=== PATIENT | female | born 1955 | race Caucasian/White ===

== ENCOUNTER 2022-07-17 14:09 | Emergency (ER) | payer MEDICARE, SELFPAY ==
--- NOTE | ~2022-07-17 | XR_ITS ---
EXAMINATION: XR HIP, LEFT CLINICAL INFORMATION: History of fall, pain COMPARISON: CT imaging of the hip from 07/17/2022. TECHNIQUE: Two views of the left hip. AP view of pelvis. FINDINGS: Bones appear to be diffusely osteopenic. Alignment is normal at the pubic symphysis, hips and sacroiliac joints. The left femoral head prosthesis is well centered within the acetabular cup. Acetabular cup has normal lateral version and is stabilized by a superior screw. The noncemented femoral stem is well centered in the medullary cavity of the proximal femoral diaphysis. No periprosthetic fracture. Minimal osteoarthrosis of the right hip. The soft tissues are unremarkable. XR/XR hip LT min 2V IMPRESSION: No acute radiographic abnormalities in the pelvis or hips. No fracture or malalignment. No evidence of loosening of components of the left total hip arthroplasty.
--- NOTE | ~2022-07-17 | CT_ITS ---
EXAMINATION: CT HEAD WITHOUT CONTRAST CT CERVICAL SPINE WITHOUT CONTRAST CLINICAL INFORMATION: Fall. COMPARISON: None available. TECHNIQUE: Contiguous axial imaging was performed from the skull base to vertex without intravenous administration of contrast. Contiguous axial imaging was performed from the upper chest through the skull base without intravenous administration of contrast. Coronal and sagittal reformats were obtained at the acquisition workstation. This CT examination was performed using dose optimization techniques as appropriate, variously including the following: *Automated exposure control. *Adjustment of mA and/or kV according to patient size (this includes techniques or standardized protocols for targeted exams where dose is matched to indication/reason for exam; i.e. extremities or head). *Use of iterative reconstruction technique. DLP: 862 mGy-cm FINDINGS: Head: There is no evidence of acute intracranial hemorrhage or edematous territorial infarction. Pierson-white matter differentiation is preserved. Confluent hypoattenuation in the periventricular and deep white matter. Proportional prominence of the ventricles and sulcal spaces without evidence of obstructive hydrocephalus. No abnormal mass effect or midline shift. No extra-axial fluid collections. No acute soft tissue or osseous abnormalities. Mild mucosal thickening of the paranasal sinuses. The mastoid air cells and middle ear cavities are clear. 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 Cervical Spine: The atlantooccipital and atlantoaxial articulations remain well aligned. Moderate degenerative arthropathy of the atlantodental articulation. Mild right convex curvature of the cervical spine. Otherwise, there is anatomic alignment of the vertebral bodies and posterior elements. No evidence of acute fracture or subluxation. The vertebral body heights and disc spaces are maintained. There is no prevertebral soft tissue swelling. The thyroid gland and remaining cervical soft tissues are within normal limits. The lung apices demonstrate no abnormalities. CT/CT cervical spine wo IV con IMPRESSION: 1. No evidence of acute intracranial hemorrhage or edematous territorial infarction. 2. Moderate to extensive underlying microangiopathy and generalized cerebral volume loss. 3. No evidence of acute fracture or traumatic subluxation of the cervical spine.
--- NOTE | ~2022-07-17 | CT_ITS ---
EXAMINATION: CT HIP WITHOUT CONTRAST, LEFT CLINICAL INFORMATION: Fall, rule out fracture. COMPARISON: None available. TECHNIQUE: Axial imaging. Sagittal and coronal reconstructions. This CT examination was performed using dose optimization techniques as appropriate, variously including the following: *Automated exposure control *Adjustment of mA and/or kV according to patient size (this includes techniques or standardized protocols for targeted exams where dose is matched to indication/reason for exam; i.e. extremities or head) *Use of iterative reconstruction technique DLP: 1031 mGy-cm FINDINGS: Patient is status post left total hip arthroplasty. There is usual position and alignment. Arthroplasty components are well-seated. Normal articulation of the arthroplasty components. There is a screw extending into the acetabulum. No hardware fracture. There is prominent metallic artifact limiting evaluation of the surrounding bone and soft tissues. No acute acetabular fractures identified. No suspicious trav-hardware lucency. The pubic rami appear intact. Normal articulation of the symphysis pubis. Metallic artifact limits evaluation of the proximal femur. In particular, there is limited evaluation of the greater trochanter. No obvious displaced fractures identified. No suspicious trav-hardware lucencies identified. Limited evaluation of the hip joint due to artifact. In the visualized muscles, no measurable tear is identified. No groin lymphadenopathy. Urinary bladder appears unremarkable. CT/CT hip LT wo IV con IMPRESSION: Left total hip arthroplasty. Metallic artifact from the arthroplasty components limits evaluation. No definite acute periprosthetic fractures identified in the nonobscured bone.. Recommend correlation with x-ray. If this persistent symptoms, concern for a osseous injury, bone scan or follow-up CT may be helpful.
[2022-07-17 14:21] VITALS: BP 154/74; BP 160/100; PULSE 96; RESP 18; O2SAT 95; O2SAT 99
[2022-07-17 14:26] VITALS: BP 154/74; PULSE 96; PULSE 98; RESP 18; TEMP 36.7; O2SAT 98
--- NOTE | 2022-07-17 14:29 | ED.FALL ---
HPI - Fall General Chief Complaint: Fall Stated Complaint: Fall, left hip & shoulder pain, per ems Time Seen by Provider: 07/17/22 14:19 Source: patient Mode of arrival: EMS Limitations: no limitations History of Present Illness HPI Narrative: Patient comes to the emergency room complaining of a fall. Patient states that she hurt her left hip. Patient hit her head, did not lose consciousness. Denies headache or neck pain. Patient denies being on blood thinners. Patient states that she was walking out of the bathroom at [facility], patient tripped and fell. Patient states she has mild left-sided shoulder pain but it is not too bad, states she can move her arms. Related Data Previous Rx's Medication Instructions Recorded acetaminophen 500 mg tablet 500 mg PO Q6H PRN pain #30 tabs 07/17/22 Allergies Allergy/AdvReac Type Severity Reaction Status Date / Time Unable to Assess Allergy Unverified 07/17/22 14:29 Review of Systems Review of Systems: Constitutional : No Weight loss, No Fever, No Chills, No Night Sweats, No Fatigue, No Malaise ENT/Mouth : No Hearing loss, No Ear Pain, No Nasal Congestion, No Sinus Pain, No Hoarseness, No sore throat, No Rhinorrhea, No Swallowing Difficulty Eyes: No Eye Pain, No Swelling, No Redness, No Foreign Body, No Discharge, No Vision Changes Cardiovascular : No Chest Pain, No SOB, No Dyspnea on Exertion, No Orthopnea, No Edema, No Palpitations Respiratory : No Cough, No Sputum, No Wheezing, No Smoke Exposure, No Dyspnea Gastrointestinal : No Nausea, No Vomiting, No Diarrhea, No Constipation, No abdominal Pain, No Hematochezia, No Melena Genitourinary : no irregular bleeding, No Dysuria, No Urinary Frequency, No Hematuria, No Urinary Incontinence, No Urgency, No Flank Pain, No Urinary Flow Changes, No Hesitancy Musculoskeletal : Complaining of severe left-sided hip pain, mild left shoulder pain, No Myalgias, No Joint Swelling Skin : No Skin Lesions, No rash Neuro : No Weakness, No Numbness, No Paresthesias, No Loss of Consciousness, No Dizziness, No Headache Psych : No Anxiety/Panic, No Depression, No SI/HI/AH/VH, No Social Issues, Heme/Lymph: No Bruising, No Bleeding,No Lymphadenopathy Endocrine : No Polyuria, No Polydipsia, No Temperature Intolerance [facility] Social History Social History Alcohol intake: former Smoked in Last 30 Days: No Use of substances other than those prescribed or required for medical reasons: No Advance Directives: No Advance Directives Information Provided: Yes Physical Exam Vital Signs: Vital Signs: Last Vital Signs Temp 98.1 F 07/17/22 14:26 Pulse 98 07/17/22 16:50 Resp 18 07/17/22 16:50 BP 157/79 H 07/17/22 16:50 Pulse Ox 98 07/17/22 16:50 O2 Del Method Room Air 07/17/22 16:50 BMI result Body Mass Index 20.0 Course Course Course Narrative: Patient's imaging pending. Medications Administered Discontinued Medications Generic Name Dose Route Start Last Admin Trade Name Freq PRN Reason Stop Dose Admin Acetaminophen 975 mg 07/17/22 17:03 07/17/22 17:21 Acetaminophen 325 Mg Tablet PO 07/17/22 17:04 975 mg ONCE ONE Administration Medical Decision Making Medical Decision Making [facility] Narrative: -my Interpretation of CT scan of the head shows no intracranial bleed. -my interpretation of CT scan of the hip, difficult to interpret, starburst affect from hip arthroplasty, we will obtain x-rays -patient received 1 dose of p.o. Tylenol -x-rays of the hip did not show any fracture or dislocation, normal alignment. -patient was able to stand up and ambulate. A little bit sore but able to do so. -patient will be returning to renal care Radiology Impression Discussion of test interpretation with radiology: I have reviewed the radiologist's reading. Radiologist Impression: INDINGS: Head: There is no evidence of acute intracranial hemorrhage or edematous territorial infarction. Pierson-white matter differentiation is preserved. Confluent hypoattenuation in the periventricular and deep white matter. Proportional prominence of the ventricles and sulcal spaces without evidence of obstructive hydrocephalus. No abnormal mass effect or midline shift. No extra-axial fluid collections. No acute soft tissue or osseous abnormalities. Mild mucosal thickening of the paranasal sinuses. The mastoid air cells and middle ear cavities are clear. 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 Cervical Spine: The atlantooccipital and atlantoaxial articulations remain well aligned. Moderate degenerative arthropathy of the atlantodental articulation. Mild right convex curvature of the cervical spine. Otherwise, there is anatomic alignment of the vertebral bodies and posterior elements. No evidence of acute fracture or subluxation. The vertebral body heights and disc spaces are maintained. There is no prevertebral soft tissue swelling. The thyroid gland and remaining cervical soft tissues are within normal limits. The lung apices demonstrate no abnormalities. CT/CT head/brain wo IV con IMPRESSION: 1.? No evidence of acute intracranial hemorrhage or edematous territorial infarction. 2.? Moderate to extensive underlying microangiopathy and generalized cerebral volume loss. 3.? No evidence of acute fracture or traumatic subluxation of the cervical spine. FINDINGS: Bones appear to be diffusely osteopenic. Alignment is normal at the pubic symphysis, hips and sacroiliac joints. The left femoral head prosthesis is well centered within the acetabular cup. Acetabular cup has normal lateral version and is stabilized by a superior screw. The noncemented femoral stem is well centered in the medullary cavity of the proximal femoral diaphysis. No periprosthetic fracture. Minimal osteoarthrosis of the right hip. The soft tissues are unremarkable. XR/XR hip LT min 2V IMPRESSION: No acute radiographic abnormalities in the pelvis or hips. No fracture or malalignment. No evidence of loosening of components of the left total hip arthroplasty. Discharge Plan Discharge Clinical Impression: Contusion of hip Patient Disposition: Home, Self-Care Instructions: Hip Contusion (ED) Additional Instructions: Please follow-up with your primary care physician tomorrow. If you have any worsening or new symptoms, please return to the emergency room or call 911 Prescriptions: New acetaminophen 500 mg tablet 500 mg PO Q6H PRN (Reason: pain) Qty: 30 0RF
--- NOTE | 2022-07-17 14:36 | PC.NURSE ---
Alert with confusion from [facility]. Per ems patient tripped while coming of the bathroom. was at [facility] s/p left hip replacement. c collar in place complaining of 9/10 left hip pain.
--- NOTE | 2022-07-17 14:39 | PC.NURSE ---
states left hip replacement with a few months ago. confused stating she was a visitor today at [facility] visiting her friend whose when she tripped
--- NOTE | 2022-07-17 14:55 | PC.NURSE ---
PERRLA, hand grasps equal, able to extend and hold arms out in front of her. Denies headache. Left leg without internal or exteral rotation, no shortening of left leg noted.
--- NOTE | 2022-07-17 15:46 | PC.NURSE ---
Pt alert/forgetful, needs frequent reminders. Seen taking off c collar. Pt educated and collar placed back in place. Pt removed off bedpan. Awaiting CT scans
[2022-07-17 16:50] VITALS: BP 157/79; PULSE 98; RESP 18; O2SAT 98
[2022-07-17] MEDS: Acetaminophen 325 MG TABLET 975 MG PO (17:21)
--- NOTE | 2022-07-17 19:52 | PC.NURSE ---
Addendum entered by Madelyn Tovar 07/17/22 19:52: Report given to [facility] RN with no further questions at this time Original Note: Re0
== END 2022-07-17 20:27 | disposition home or self-care (01) ==
PROVIDERS: Absent Provider Physician Assistant Medical; Emergency Provider Emergency Medicine; PCP Family Medicine
DX: S70.02XA Contusion of left hip, initial encounter (principal); S70.212A Abrasion, left hip, initial encounter; R51.9 Headache, unspecified; M54.2 Cervicalgia; W01.0XXA Fall on same level from slipping, tripping and stumbling without subsequent striking against object, initial encounter; Y93.9 Activity, unspecified; Y92.9 Unspecified place or not applicable; Y99.9 Unspecified external cause status
CPT/HCPCS: 70450; 72125; 73502; 73700; 99284

== ENCOUNTER 2022-09-05 12:09 | Inpatient (IN) | payer MEDICARE, SELFPAY ==
[2022-09-05] VITALS (12 sets, daily range): BP systolic 104–158; BP diastolic 55–80; PULSE 103–119; RESP 16–26; TEMP 36.5–40.4; O2SAT 90–98; BMI 26.3; BMI 25.7
--- NOTE | 2022-09-05 | ECG_ITS ---
Test Reason : SEPSIS Blood Pressure : / mmHG Vent. Rate : 118 BPM Atrial Rate : 118 BPM P-R Int : 134 ms QRS Dur : 070 ms QT Int : 298 ms P-R-T Axes : 066 013 053 degrees QTc Int : 417 ms Sinus tachycardia Nonspecific T wave abnormality Abnormal ECG No previous ECGs available Referred By: Generic ED Physician Electronically Signed By:Kwasi Peacock
--- NOTE | ~2022-09-05 | XR_ITS ---
EXAMINATION: XR CHEST CLINICAL INFORMATION: Shortness of breath COMPARISON: None available. TECHNIQUE: Frontal view of the chest was obtained. FINDINGS: Heart size within normal limits. Right lung is clear. No gross vascular congestion. Possible air bronchograms in left upper lobe, partially obscured by patient's chin. No acute bony pathology. XR/XR chest 1V IMPRESSION: Possible left upper lobe peribronchiolar increased markings/consolidation. Repeat study recommended when feasible.
--- NOTE | ~2022-09-05 | CT_ITS ---
EXAMINATION: CT HEAD WITHOUT CONTRAST CLINICAL INFORMATION: Altered mental status COMPARISON: CT head 07/17/2022 TECHNIQUE: Contiguous axial imaging was performed from the skull base to vertex without intravenous administration of contrast. Coronal and sagittal reformatted images are performed at the CT scanner. [This CT examination was performed using dose optimization techniques as appropriate, variously including the following: *Automated exposure control *Adjustment of mA and/or kV according to patient size (this includes techniques or standardized protocols for targeted exams where dose is matched to indication/reason for exam; i.e. extremities or head) *Use of iterative reconstruction technique] DLP: 5.12+682.74 mGy-cm. FINDINGS: There is no evidence of acute intracranial hemorrhage or territorial infarction. No abnormal mass-effect or midline shift is seen. Pierson to white matter differentiation is well preserved. No extra-axial fluid collections are identified. There is generalized global volume loss. There is moderate prominence of the ventricles and the sulci . There is moderate hypodensity of the periventricular white matter due to chronic small vessel ischemic disease. There are vascular calcifications of the internal carotid arteries bilaterally. There is no osseous abnormality. The mastoid air cells and visualized portions of the paranasal sinuses are well-aerated. CT/CT head/brain wo IV con IMPRESSION: No acute intracranial pathology.
--- NOTE | ~2022-09-05 | CT_ITS ---
EXAMINATION: CT ABDOMEN AND PELVIS WITH CONTRAST CLINICAL INFORMATION: Abdominal pain COMPARISON: None available. TECHNIQUE: Multidetector volumetric images were obtained from the superior aspect of the liver through the pubic symphysis following administration 85 mL of Omnipaque 350 intravenous contrast. Sagittal and coronal reformatted images were obtained on the technologist's workstation. Oral contrast: No This CT examination was performed using dose optimization techniques as appropriate, variously including the following: *Automated exposure control *Adjustment of mA and/or kV according to patient size (this includes techniques or standardized protocols for targeted exams where dose is matched to indication/reason for exam; i.e. extremities or head) *Use of iterative reconstruction technique DLP: 4.87+518.54 mGy-cm FINDINGS: There is breathing motion which limits study. LUNG BASES: The visualized lung bases are unremarkable. LIVER, GALLBLADDER, AND BILIARY TREE: The liver is normal in size, shape, and attenuation. No focal hepatic lesion or biliary ductal dilatation is present. The gallbladder is unremarkable with no evidence of radiopaque gallstones, gallbladder wall thickening, or obvious pericholecystic inflammatory changes. PANCREAS: Unremarkable. SPLEEN: Unremarkable. ADRENAL GLANDS: Unremarkable. KIDNEYS AND URETERS: There is moderate hydronephrosis of right kidney with distention renal pelvis calyces and extrarenal pelvis. No hydroureter however. No dilatation of the left renal collecting system. There is no renal calculus or mass in either kidney. The enhancement of the cortex of both kidneys is normal. BLADDER: Gill catheter within the bladder. Bladder is obscured by streak artifact from left hip replacement. GASTROINTESTINAL TRACT: The small and large bowel are unremarkable. The appendix is nonvisualized. ABDOMINAL WALL: No significant hernia is appreciated. LYMPH NODES: Normal. VASCULAR: Unremarkable. PELVIC VISCERA: Unremarkable. OSSEOUS STRUCTURES: Status post left hip replacement CT/CT abdomen pelvis w IV con IMPRESSION: 1. Moderate hydronephrosis of right kidney. No renal calculus or mass. 2. Gill catheter within the bladder. 3. No acute abnormality of the abdomen or pelvis. Fleischner guidelines were followed.
[2022-09-05] MEDS: SODIUM CHLORIDE 1836 ML IV (13:40)
--- NOTE | 2022-09-05 13:43 | PC.NURSE ---
Pt initially in ED Bed 13 [place]. Moved to ED Bed 5 due to sepsis protocol and monitoring needs. Pt is febrile, tachycardic, tachypnic, lethargic, and has 2LPM oxygen via nasal cannula at this time. Arrives from [facility] via EMS. Pt doesn't respond other than occasional moaning or mumbles to verbal stimuli. Occasionally opens eyes. Large liquid bowel movement, ?C-Diff upon being moved to ED Bed 5. EKG obtained, labs drawn and sent for analysis. Rectal temperature 104.8 F, Dr. Gray aware. 18g IV access in Right AC started by EMS prior to arrival, 20g IV access in left forearm by Argelia Bansal RN. Normal saline infusing as ordered, awaiting results. Vomiting yellow/green bile occasionally. Gown & linens changed with assistance from ED Techs Noe & Mariah.
[2022-09-05 13:45] LABS: Basophils Percent Auto 0.3 % (0-2); Hematocrit 39.7 % (37.0-47.0); Hemoglobin 12.8 g/dl (12.0-16.0); Imm Gran Abs Auto 0.04 X10*3/uL (0.00-0.03); Imm Gran Pct Auto 0.3 % (0.0-0.4); Lymphocytes Absolute Auto 0.4 X10*3/uL (1.2-4.9); Lymphocytes Percent Auto 2.7 % (20-40); MANUAL DIFF FLAG SCAN; Mean Corpuscular HGB Conc 32.2 g/dl (31.0-35.0); Mean Corpuscular Hemoglobin 31.4 pg (27.0-33.0); Mean Corpuscular Volume 97.3 fL (80.0-98.0); Mean Platelet Volume 8.4 fL (9.4-12.3); Monocytes Percent Auto 0.3 % (2-11); Neutrophils Absolute Auto 12.3 x10*3/uL (2.0-8.3); Neutrophils Percent Auto 96.4 % (45-73); Platelet Count 196 X10*3/uL (160-400); Red Blood Count 4.08 X10*6/uL (4.20-5.50); Red Cell Distribution Width 13.3 % (11.0-16.0); SCAN SMEAR FLAG 1; White Blood Count 12.7 X10*3/uL (4.8-10.8)
--- NOTE | 2022-09-05 13:53 | ED.GENADULT ---
HPI - General Adult General Chief complaint: General Medical Stated complaint: abdominal pain, nausea, vomiting,fever per ems Time Seen by Provider: 09/05/22 13:09 Source: EMS Mode of arrival: EMS History of Present Illness HPI narrative: 67-year-old female with history of MS is brought in by EMS appears to be minimally verbal at this time so history is provided by EMS and the paperwork that was sent from the [facility]. They state that they sent patient over for lethargy, fever and bilious vomiting. Related Data Home Medications Medication Instructions Recorded Confirmed acetaminophen 325 mg tablet 975 mg PO TID 09/05/22 09/05/22 acetaminophen 650 mg rectal 650 mg PA Q4H PRN Fever Or Pain 09/05/22 09/05/22 suppository bisacodyl 10 mg rectal suppository 10 mg PA DAILY PRN Constipation 09/05/22 09/05/22 cyanocobalamin (vitamin B-12) 1,000 mcg PO DAILY 09/05/22 09/05/22 1,000 mcg tablet ferrous sulfate 325 mg (65 mg 650 mg PO Q2D 09/05/22 09/05/22 iron) tablet,delayed release lidocaine 4 % topical patch 1 patch topical DAILY PRN Pain 09/05/22 09/05/22 magnesium hydroxide 400 mg/5 mL 30 ml PO DAILY PRN Constipation 09/05/22 09/05/22 oral suspension (Milk of Magnesia) meclizine 12.5 mg tablet 12.5 mg PO TID PRN Dizziness 09/05/22 09/05/22 naloxone 4 mg/actuation nasal 4 mg intranasal Q3M PRN Opioid 09/05/22 09/05/22 spray (Narcan) Overdose sodium phosphates 19 gram-7 118 ml PA DAILY PRN Constipation 09/05/22 09/05/22 gram/118 mL enema (Fleet Enema) Allergies Allergy/AdvReac Type Severity Reaction Status Date / Time Sulfa (Sulfonamide Allergy Unknown Verified 09/05/22 12:30 Antibiotics) Review of Systems Review of Systems: Yes Unobtainable due to mental condition PMFSH Past Medical History Source: nursing notes reviewed Social History Social History Alcohol intake: former Advance Directives: No Advance Directives Information Provided: Yes Physical Exam ED Vital Signs: Vital Signs - 24 hr 09/05/22 12:25 09/05/22 13:11 09/05/22 14:37 Temperature 99.4 F 104.8 F H 103.1 F H Pulse Rate 110 H 105 H 113 H Respiratory Rate 26 H 22 H 22 H Blood Pressure 158/59 H 133/66 156/69 H Pulse Oximetry 90 L 97 96 Oxygen Delivery Method Room Air Nasal Cannula Nasal Cannula Oxygen Flow Rate 2 2 09/05/22 13:53 09/05/22 14:23 09/05/22 14:53 Temperature 104.2 F H Pulse Rate 113 H 118 H 117 H Respiratory Rate 20 Blood Pressure 150/63 H 141/72 H 150/75 H Pulse Oximetry 96 Oxygen Delivery Method Room Air Oxygen Flow Rate 2 09/05/22 15:23 09/05/22 17:07 Temperature 104.4 F H 103.6 F H Pulse Rate 106 H 114 H Respiratory Rate 20 16 Blood Pressure 146/80 H 137/65 Pulse Oximetry 97 98 Oxygen Delivery Method Nasal Cannula Nasal Cannula Oxygen Flow Rate 2 2 BMI result Body Mass Index 26.3 VITAL SIGNS: Reviewed. GENERAL: Chronically ill, in no acute distress. HEAD: Normocephalic/atraumatic EYES: PERRLA, EOMI EARS: Ext canals without abnormality, TMs non-bulging and non-erythematous NOSE: Nares patent bilateral OROPHARYNX: no oral lesions noted, posterior pharynx clear, dry mucosa NECK: Supple, no adenopathy LUNGS: Normal breath sounds. No adventitious sounds or accessory muscle use. SpO2<97> on supplemental oxygen CARDIOVASCULAR: Regular rate and rhythm without noted murmurs, no JVD or lower extremity edema. ABDOMEN: Soft, non-tender, non-distended with bowel sounds. MUSCULOSKELETAL: No tenderness, deformities, or effusions noted on gross inspection. EXTREMITIES: No cyanosis, clubbing or edema. SKIN: Inspection of the skin reveals no rashes, tactile fever NEUROLOGIC: Lethargic and oriented x 1. Strength and sensation to light touch were grossly intact x 4. Medications Administered Generic Name Dose Route Start Last Admin Trade Name Freq PRN Reason Stop Dose Admin Potassium Chloride 10 meq in 100 mls @ 100 mls/hr 09/05/22 15:45 09/05/22 17:06 Potassium Chloride/H20 IV 09/05/22 17:44 100 mls/hr Q1H FE Administration Sodium Chloride 1,000 mls @ 999 mls/hr 09/05/22 17:00 09/05/22 17:06 Ns IV 09/05/22 18:00 999 mls/hr .Q1H1M FE Administration Discontinued Medications Generic Name Dose Route Start Last Admin Trade Name Bennettq PRN Reason Stop Dose Admin Acetaminophen 650 mg 09/05/22 13:11 09/05/22 14:14 Acetaminophen Supp 650 Mg Supp.Rect PA 09/05/22 13:12 650 mg ONCE ONE Administration Piperacillin Sod/Tazobactam 50 mls @ 100 mls/hr 09/05/22 13:09 09/05/22 14:45 Sod 3.375 gm/ Sodium Chloride IV 09/05/22 13:38 Infused ONCE ONE Infusion Sodium Chloride 1,836 mls @ 1,836 mls/hr 09/05/22 13:11 09/05/22 14:40 Ns 30 ml/kg infuse over 1 hr (1836 ml) 09/05/22 14:10 Infused IV Infusion .Q1H STA Magnesium Sulfate/Dextrose 1 gm in 100 mls @ 300 mls/hr 09/05/22 15:35 09/05/22 16:36 Magnesium Sulfate/D5w IV 09/05/22 15:54 Infused ONCE ONE Infusion Iohexol 100 ml 09/05/22 15:14 09/05/22 15:15 Iohexol 350 Mg/Ml 100 Ml Infus..Btl IV 09/05/22 15:15 85 ml ONCE ONE Administration Ketorolac Tromethamine 15 mg 09/05/22 15:37 09/05/22 16:02 Ketorolac Tromethamine 30 Mg/Ml Vial IVPUSH 09/05/22 15:38 15 mg ONCE ONE Administration Medical Decision Making Medical Decision Making [facility] Narrative: 1310: 67-year-old female with history and clinical presentation, DDX: Sepsis secondary to pneumonia as patient is noted to be hypoxic, or possible intra-abdominal as patient was noted to have copious amounts of diarrhea so will send GI panel/C diff, viral syndrome, gastroenteritis. Sepsis fluids, lactic acid, blood cultures, and antibiotics have been ordered. 1440: Given patient's decrease in mentation will also get CT of the head only if mentation does not improve with temperature reduction. I reviewed all investigations and hematologic indices significant for leukocytosis/ left shift and in combination with chest x-ray findings which suggest pneumonia and fever suspect that the sepsis is related to pneumonia. Temperature did mildly improve but has begun to increase again. Chemistry indices significant for low magnesium which was repleted, low potassium which patient will be getting 2-10 mEq potassium chloride via IV. CT of the head negative for mass, mass effect or intracranial hemorrhage and otherwise my interpretation is in agreement with radiology's impression. In addition, CT scan of the abdomen pelvis not significant for a colitis picture and otherwise my interpretation agrees with radiology's impression. C diff was noted to be negative and continue to wait for GI panel. Urinalysis significant for hematuria/rbc's/wbc's without presence of bacteria. Viral testing is pending 1622: I discussed case with inpatient hospitalist who accepts admission. Differential Diagnosis Differential Diagnoses: The differential diagnosis associated with the presentation includes Please see the discussion above Admission/Observation Consideration of admission/observation: Escalation of care including admission/observation considered Please see the discussion above Consult Healthcare Provider Management of the patient was discussed with: Hospitalist Please see the discussion above Lab Data MDM Lab Attestation statement: I reviewed the patient's lab results. Please see the discussion above 09/05/22 13:38 Labs: Lab Results 09/05/22 09/05/22 09/05/22 Range/Units 13:38 13:38 13:38 WBC 12.7 H (4.8-10.8) X10*3/uL RBC 4.08 L (4.20-5.50) X10*6/uL Hgb 12.8 (12.0-16.0) g/dl Hct 39.7 (37.0-47.0) % MCV 97.3 (80.0-98.0) fL MCH 31.4 (27.0-33.0) pg MCHC 32.2 (31.0-35.0) g/dl RDW 13.3 (11.0-16.0) % Plt Count 196 (160-400) X10*3/uL MPV 8.4 L (9.4-12.3) fL Immature Gran % (Auto) 0.3 (0.0-0.4) % Neut % (Auto) 96.4 H (45-73) % Lymph % (Auto) 2.7 L (20-40) % Caroline % (Auto) 0.3 L (2-11) % Eos % (Auto) 0.0 (0-4) % Baso % (Auto) 0.3 (0-2) % Lymph # (Auto) 0.4 L (1.2-4.9) X10*3/uL [place] # (Auto) 0.0 L (0.1-1.2) X10*3/uL Eos # (Auto) 0.0 (0.0-0.4) X10*3/uL Baso # (Auto) 0.0 (0.0-0.2) X10*3/uL Abs Immat Gran (auto) 0.04 H (0.00-0.03) X10*3/uL Absolute Neuts (auto) 12.3 H (2.0-8.3) x10*3/uL Absolute Nucleated RBC 0.000 (0.0-0.012) X10*3/uL Nucleated RBC % (auto) 0.0 (0.0-0.2) /100WBC Smear Tech's Comments VERIFIED PT 11.3 (10.0-13.1) SEC INR 1.0 (0.9-1.1) APTT 28.3 (26.0-36.4) SEC Sodium (135-145) mmol/L Potassium (3.3-5.1) mmol/L Chloride (96-108) mmol/L Carbon Dioxide (22-29) mmol/L Anion Gap (12-20) BUN (9-16) mg/dL Creatinine (0.5-1.4) mg/dL Estim Creat Clear Calc Estimated GFR Random Glucose (60-115) mg/dL Lactic Acid 2.3 H* (0.5-2.0) mmol/L Lactic Acid F/U @ 2Hr (0.5-2.0) mmol/L Calcium (8.4-10.2) mg/dL Magnesium (1.6-2.6) mg/dL Total Bilirubin (0.0-1.0) mg/dL Direct Bilirubin (0.0-0.5) mg/dL AST (5-31) U/L ALT (0-31) U/L Alkaline Phosphatase (39-117) U/L Total Protein (6.5-8.0) g/dL Albumin (3.5-5.0) g/dL Urine Color Urine Appearance Urine pH (5.0-9.0) Ur Specific [employer] (1.005-1.025) Urine Protein (Neg-Trace) mg/dL Urine Glucose (UA) (Negative) mg/dL Urine Ketones (Negative) mg/dL Urine Blood (Negative) Urine Nitrite (Negative) Ur Leukocyte Esterase (Negative) Urine RBC (0-2) /HPF Urine WBC (0-5) /HPF Ur Squamous Epith Cells (0-2) /HPF Urine Bacteria (None Seen) Hyaline Casts (0-2) /LPF C. difficile Tox B Gene (Negative) 09/05/22 09/05/22 09/05/22 Range/Units 13:38 13:52 14:45 WBC (4.8-10.8) X10*3/uL RBC (4.20-5.50) X10*6/uL Hgb (12.0-16.0) g/dl Hct (37.0-47.0) % MCV (80.0-98.0) fL MCH (27.0-33.0) pg MCHC (31.0-35.0) g/dl RDW (11.0-16.0) % Plt Count (160-400) X10*3/uL MPV (9.4-12.3) fL Immature Gran % (Auto) (0.0-0.4) % Neut % (Auto) (45-73) % Lymph % (Auto) (20-40) % Caroline % (Auto) (2-11) % Eos % (Auto) (0-4) % Baso % (Auto) (0-2) % Lymph # (Auto) (1.2-4.9) X10*3/uL Caroline # (Auto) (0.1-1.2) X10*3/uL Eos # (Auto) (0.0-0.4) X10*3/uL Baso # (Auto) (0.0-0.2) X10*3/uL Abs Immat Gran (auto) (0.00-0.03) X10*3/uL Absolute Neuts (auto) (2.0-8.3) x10*3/uL Absolute Nucleated RBC (0.0-0.012) X10*3/uL Nucleated RBC % (auto) (0.0-0.2) /100WBC Smear Tech's Comments PT (10.0-13.1) SEC INR (0.9-1.1) APTT (26.0-36.4) SEC Sodium 144 (135-145) mmol/L Potassium 3.0 L (3.3-5.1) mmol/L Chloride 115 H (96-108) mmol/L Carbon Dioxide 21 L (22-29) mmol/L Anion Gap 11 L (12-20) BUN 17 H (9-16) mg/dL Creatinine 0.82 (0.5-1.4) mg/dL Estim Creat Clear Calc 53.6 Estimated GFR > 60 Random Glucose 87 (60-115) mg/dL Lactic Acid (0.5-2.0) mmol/L Lactic Acid F/U @ 2Hr (0.5-2.0) mmol/L Calcium 7.2 L (8.4-10.2) mg/dL Magnesium 1.5 L (1.6-2.6) mg/dL Total Bilirubin 0.7 (0.0-1.0) mg/dL Direct Bilirubin 0.2 (0.0-0.5) mg/dL AST 20 (5-31) U/L ALT 6 (0-31) U/L Alkaline Phosphatase 50 (39-117) U/L Total Protein 5.8 L (6.5-8.0) g/dL Albumin 3.1 L (3.5-5.0) g/dL Urine Color Yellow Urine Appearance Cloudy Urine pH 6.5 (5.0-9.0) Ur Specific [employer] <= 1.005 (1.005-1.025) Urine Protein Negative (Neg-Trace) mg/dL Urine Glucose (UA) Negative (Negative) mg/dL Urine Ketones Negative (Negative) mg/dL Urine Blood Large (3+) H (Negative) Urine Nitrite Negative (Negative) Ur Leukocyte Esterase Large (3+) H (Negative) Urine RBC >20 H (0-2) /HPF Urine WBC >50 H (0-5) /HPF Ur Squamous Epith Cells 0-2 (0-2) /HPF Urine Bacteria Trace (None Seen) Hyaline Casts 0-2 (0-2) /LPF C. difficile Tox B Gene NEGATIVE (Negative) 09/05/22 Range/Units 16:13 WBC (4.8-10.8) X10*3/uL RBC (4.20-5.50) X10*6/uL Hgb (12.0-16.0) g/dl Hct (37.0-47.0) % MCV (80.0-98.0) fL MCH (27.0-33.0) pg MCHC (31.0-35.0) g/dl RDW (11.0-16.0) % Plt Count (160-400) X10*3/uL MPV (9.4-12.3) fL Immature Gran % (Auto) (0.0-0.4) % Neut % (Auto) (45-73) % Lymph % (Auto) (20-40) % Caroline % (Auto) (2-11) % Eos % (Auto) (0-4) % Baso % (Auto) (0-2) % Lymph # (Auto) (1.2-4.9) X10*3/uL [place] # (Auto) (0.1-1.2) X10*3/uL Eos # (Auto) (0.0-0.4) X10*3/uL Baso # (Auto) (0.0-0.2) X10*3/uL Abs Immat Gran (auto) (0.00-0.03) X10*3/uL Absolute Neuts (auto) (2.0-8.3) x10*3/uL Absolute Nucleated RBC (0.0-0.012) X10*3/uL Nucleated RBC % (auto) (0.0-0.2) /100WBC Smear Tech's Comments PT (10.0-13.1) SEC INR (0.9-1.1) APTT (26.0-36.4) SEC Sodium (135-145) mmol/L Potassium (3.3-5.1) mmol/L Chloride (96-108) mmol/L Carbon Dioxide (22-29) mmol/L Anion Gap (12-20) BUN (9-16) mg/dL Creatinine (0.5-1.4) mg/dL Estim Creat Clear Calc Estimated GFR Random Glucose (60-115) mg/dL Lactic Acid (0.5-2.0) mmol/L Lactic Acid F/U @ 2Hr 2.5 H* (0.5-2.0) mmol/L Calcium (8.4-10.2) mg/dL Magnesium (1.6-2.6) mg/dL Total Bilirubin (0.0-1.0) mg/dL Direct Bilirubin (0.0-0.5) mg/dL AST (5-31) U/L ALT (0-31) U/L Alkaline Phosphatase (39-117) U/L Total Protein (6.5-8.0) g/dL Albumin (3.5-5.0) g/dL Urine Color Urine Appearance Urine pH (5.0-9.0) Ur Specific [employer] (1.005-1.025) Urine Protein (Neg-Trace) mg/dL Urine Glucose (UA) (Negative) mg/dL Urine Ketones (Negative) mg/dL Urine Blood (Negative) Urine Nitrite (Negative) Ur Leukocyte Esterase (Negative) Urine RBC (0-2) /HPF Urine WBC (0-5) /HPF Ur Squamous Epith Cells (0-2) /HPF Urine Bacteria (None Seen) Hyaline Casts (0-2) /LPF C. difficile Tox B Gene (Negative) Independent Interpretation I performed an independent interpretation of an: EKG Interpretation: Sinus tachycardia, HR-118, no STEMI, PA/QRS/QTC within normal limits Radiology Impression Radiologist Impression: Left upper lobe pneumonia, otherwise my interpretation is in agreement with radiology's impression. External Record Review External record reviewed: Outpatient record and Prior outpatient labs Critical Care Time Critical Care Time Critical Care Time: Yes Total Critical Care Time: 45 Attestation: I personally attest to this time spent taking care of the patient. Discharge Plan Discharge Clinical Impression: Pneumonia, Hematuria Patient Disposition: Admitted As Inpatient
[2022-09-05 13:55] LABS: Prothrombin Time 11.3 SEC (10.0-13.1)
[2022-09-05 13:58] LABS: Partial Thromboplastin Time 28.3 SEC (26.0-36.4)
[2022-09-05] MEDS: Acetaminophen Supp 650 MG SUPP.RECT PR (14:14)
[2022-09-05] MEDS: Piperacillin Sodium/Tazobactam 3.375 GM in 0.9 % Sodium Chloride 50 ML IV (14:14)
[2022-09-05 14:15] LABS: Lactic Acid 2.3 mmol/L (0.5-2.0)
[2022-09-05 14:20] LABS: Alanine Aminotransferase 6 U/L (0-31); Albumin Level 3.1 g/dL (3.5-5.0); Alkaline Phosphatase 50 U/L (39-117); Anion Gap 11 (12-20); Aspartate Amino Transferase 20 U/L (5-31); Bilirubin Direct 0.2 mg/dL (0.0-0.5); Bilirubin Total 0.7 mg/dL (0.0-1.0); Blood Urea Nitrogen 17 mg/dL (9-16); Calcium 7.2 mg/dL (8.4-10.2); Carbon Dioxide 21 mmol/L (22-29); Chloride 115 mmol/L (96-108); Creatinine Clr Calc Pharmacy 53.6; Estimated Glomerular Filt Rate > 60; Glucose Random 87 mg/dL (60-115); Sodium 144 mmol/L (135-145); Total Protein 5.8 g/dL (6.5-8.0)
[2022-09-05 14:21] LABS: SLIDE REVIEW VERIFIED
--- NOTE | 2022-09-05 14:41 | PC.NURSE ---
patient resting in bed, was found to be incontinent of urine, patient cleaned up, pads changed. placed a temp sensing 16 fr huggins cath with 140 ml of clear, pink tinged urine as output. rsp equal and unlabored, no distress noted.
[2022-09-05 14:53] LABS: Appearance Urine Cloudy; Color Urine Yellow; Glucose Urine UA Negative (Negative); Leukocyte Esterase Urine Large (3+) (Negative); Nitrite Urine Negative (Negative); PH 6.5 (5.0-9.0); Specific Gravity - Urine <= 1.005 (1.005-1.025); UMIC TRIGGER UACC YES; Urine Blood Large (3+) (Negative); Urine Ketones Negative (Negative); Urine Protein Negative (Neg-Trace)
[2022-09-05 14:55] LABS: Bacteria Urine Trace (None Seen); Hyaline Casts Urine 0-2 /LPF (0-2); RBC Urine >20 /HPF (0-2); Squamous Epithelial Cell Urine 0-2 /HPF (0-2); UACC Culture Trigger YES; WBC Urine >50 /HPF (0-5)
[2022-09-05 14:56] LABS: CDiff Gene PCR NEGATIVE (Negative)
[2022-09-05 15:00] LABS: Magnesium 1.5 mg/dL (1.6-2.6)
[2022-09-05] MEDS: iohexoL 350 MG/ML 100 ML INFUS..BTL IV (15:15)
--- NOTE | 2022-09-05 15:22 | PHA.MEDREC ---
Pharmacy Consult ? Medication Reconciliation Pharmacy has completed the medication reconciliation. Patient had list from [facility].
--- NOTE | 2022-09-05 15:32 | PC.NURSE ---
cold packs post neck and groin
--- NOTE | 2022-09-05 15:34 | PC.NURSE ---
700 ml urinary output
[2022-09-05 15:40] LABS: Reflex Lactate? Lactic Acid Added
[2022-09-05] MEDS: Ketorolac Tromethamine 30 MG/ML VIAL 15 MG IVPUSH (16:02)
[2022-09-05] MEDS: Magnesium Sulfate/D5W 1 GM/100 ML PIGGYBACK IV (16:04)
[2022-09-05] MEDS: Potassium Chloride/H20 10 MEQ/100 ML PIGGYBACK 100 MEQ IV ×2 (16:11→17:06)
--- NOTE | 2022-09-05 16:30 | PC.NURSE ---
patient was incontinent of feces, patient cleaned up, new pads placed. pt huggins output is pink tinged urine. temp sensing huggins with 104.5 fever, applied ice packs to patients under arms, groin area and back of the neck for increased fever control.
[2022-09-05 16:39] LABS: ~Lactic Acid-LAB USE ONLY 2.5 mmol/L (0.5-2.0)
[2022-09-05] MEDS: 0.9 % Sodium Chloride 1,000 ML 999 ML IV (17:06)
--- NOTE | 2022-09-05 17:24 | PM.IMHP ---
History of Present Illness Date of Service: 09/05/22 Chief Complaint: Fever and weakness 67 year female with MS, iron deficiency, vit b12 def from SNF who is brought to the ED to be evaluated for fever, weakness, diarrhea. WBC is 12, tachycardic HR in 110's, temperature of 104. Lactic acid 2.3, mag 1.5, UA is grossly positive for UTI, CXR suggest pneumonia, CT head negative, CT of Abd/Pelvis showe a right hydronephrosis. She is giving Zosyn in the ED Review of Systems Review of Systems: Yes Unobtainable due to mental status PMFSH Social History Household Members: Unknown / Unable to assess Unable to assess alcohol history related to: Unable to respond Alcohol intake: former Patient Tobacco Use Status: Never used Tobacco Use of substances other than those prescribed or required for medical reasons: Unknown Currently Displaying Signs/Symptoms of Drug Intoxication Withdrawal: No Advance Directives: No Advance Directives Information Provided: Yes Nutrition Risks: On aspiration precautions Patient : No : No Poor oral hygiene: No Meds Allergies Allergy/AdvReac Type Severity Reaction Status Date / Time Sulfa (Sulfonamide Allergy Unknown Verified 09/05/22 12:30 Antibiotics) Active Medications: Current Medications Potassium Chloride (Potassium Chloride/H20) 10 meq in 100 mls @ 100 mls/hr IV Q1H [facility] Stop: 09/05/22 17:44 Last Admin: 09/05/22 17:06 Dose: 100 mls/hr Sodium Chloride (Ns) 1,000 mls @ 999 mls/hr IV .Q1H1M [facility] Stop: 09/05/22 18:00 Last Admin: 09/05/22 17:06 Dose: 999 mls/hr Pharmacy Consult (Consult Rx Perform Med Rec) 1 each MISCELLANE ONCE PRN PRN Reason: Consult order Home Medications Medication Instructions Recorded Confirmed Last Taken Type acetaminophen 325 mg tablet 975 mg PO TID 09/05/22 09/05/22 Unknown History acetaminophen 650 mg rectal 650 mg [place] Q4H PRN Fever Or Pain 09/05/22 09/05/22 Unknown History suppository bisacodyl 10 mg rectal suppository 10 mg [place] DAILY PRN Constipation 09/05/22 09/05/22 Unknown History cyanocobalamin (vitamin B-12) 1,000 mcg PO DAILY 09/05/22 09/05/22 Unknown History 1,000 mcg tablet ferrous sulfate 325 mg (65 mg 650 mg PO Q2D 09/05/22 09/05/22 Unknown History iron) tablet,delayed release lidocaine 4 % topical patch 1 patch topical DAILY PRN Pain 09/05/22 09/05/22 Unknown History magnesium hydroxide 400 mg/5 mL 30 ml PO DAILY PRN Constipation 09/05/22 09/05/22 Unknown History oral suspension (Milk of Magnesia) meclizine 12.5 mg tablet 12.5 mg PO TID PRN Dizziness 09/05/22 09/05/22 Unknown History naloxone 4 mg/actuation nasal 4 mg intranasal Q3M PRN Opioid 09/05/22 09/05/22 Unknown History spray (Narcan) Overdose sodium phosphates 19 gram-7 118 ml [place] DAILY PRN Constipation 09/05/22 09/05/22 Unknown History gram/118 mL enema (Fleet Enema) Physical Exam Vital Signs and Narrative: Vital Signs: Last Vital Signs Temp 103.6 F H 09/05/22 17:07 Pulse 114 H 09/05/22 17:07 Resp 16 09/05/22 17:07 BP 137/65 09/05/22 17:07 Pulse Ox 98 09/05/22 17:07 O2 Del Method Nasal Cannula 09/05/22 17:07 O2 Flow Rate 2 09/05/22 17:07 BMI result Body Mass Index 26.3 Results Labs 09/05/22 13:38 09/05/22 13:52 Labs: Laboratory Results - last 24 hr 09/05/22 09/05/22 09/05/22 13:38 13:38 13:38 MCV 97.3 MCH 31.4 MCHC 32.2 RDW 13.3 Plt Count 196 MPV 8.4 L Immature Gran % (Auto) 0.3 Neut % (Auto) 96.4 H Lymph % (Auto) 2.7 L [place] % (Auto) 0.3 L Eos % (Auto) 0.0 Baso % (Auto) 0.3 Lymph # (Auto) 0.4 L [place] # (Auto) 0.0 L Eos # (Auto) 0.0 Baso # (Auto) 0.0 Abs Immat Gran (auto) 0.04 H Absolute Neuts (auto) 12.3 H Absolute Nucleated RBC 0.000 Nucleated RBC % (auto) 0.0 Smear Tech's Comments VERIFIED PT 11.3 INR 1.0 APTT 28.3 Anion Gap Estim Creat Clear Calc Estimated GFR Random Glucose Lactic Acid 2.3 H* Lactic Acid F/U @ 2Hr Calcium Magnesium Total Bilirubin Direct Bilirubin AST ALT Alkaline Phosphatase Total Protein Albumin Urine Color Urine Appearance Urine pH Ur Specific [place] Urine Protein Urine Glucose (UA) Urine Ketones Urine Blood Urine Nitrite Ur Leukocyte Esterase Urine RBC Urine WBC Ur Squamous Epith Cells Urine Bacteria Hyaline Casts C. difficile Tox B Gene 09/05/22 09/05/22 09/05/22 13:38 13:52 14:45 MCV MCH MCHC RDW Plt Count MPV Immature Gran % (Auto) Neut % (Auto) Lymph % (Auto) [place] % (Auto) Eos % (Auto) Baso % (Auto) Lymph # (Auto) [place] # (Auto) Eos # (Auto) Baso # (Auto) Abs Immat Gran (auto) Absolute Neuts (auto) Absolute Nucleated RBC Nucleated RBC % (auto) Smear Tech's Comments PT INR APTT Anion Gap 11 L Estim Creat Clear Calc 53.6 Estimated GFR > 60 Random Glucose 87 Lactic Acid Lactic Acid F/U @ 2Hr Calcium 7.2 L Magnesium 1.5 L Total Bilirubin 0.7 Direct Bilirubin 0.2 AST 20 ALT 6 Alkaline Phosphatase 50 Total Protein 5.8 L Albumin 3.1 L Urine Color Yellow Urine Appearance Cloudy Urine pH 6.5 Ur Specific [place] <= 1.005 Urine Protein Negative Urine Glucose (UA) Negative Urine Ketones Negative Urine Blood Large (3+) H Urine Nitrite Negative Ur Leukocyte Esterase Large (3+) H Urine RBC >20 H Urine WBC >50 H Ur Squamous Epith Cells 0-2 Urine Bacteria Trace Hyaline Casts 0-2 C. difficile Tox B Gene NEGATIVE 09/05/22 16:13 MCV MCH MCHC RDW Plt Count MPV Immature Gran % (Auto) Neut % (Auto) Lymph % (Auto) [place] % (Auto) Eos % (Auto) Baso % (Auto) Lymph # (Auto) [place] # (Auto) Eos # (Auto) Baso # (Auto) Abs Immat Gran (auto) Absolute Neuts (auto) Absolute Nucleated RBC Nucleated RBC % (auto) Smear Tech's Comments PT INR APTT Anion Gap Estim Creat Clear Calc Estimated GFR Random Glucose Lactic Acid Lactic Acid F/U @ 2Hr 2.5 H* Calcium Magnesium Total Bilirubin Direct Bilirubin AST ALT Alkaline Phosphatase Total Protein Albumin Urine Color Urine Appearance Urine pH Ur Specific [place] Urine Protein Urine Glucose (UA) Urine Ketones Urine Blood Urine Nitrite Ur Leukocyte Esterase Urine RBC Urine WBC Ur Squamous Epith Cells Urine Bacteria Hyaline Casts C. difficile Tox B Gene Imaging Radiologist's Impressions: Impressions Chest X-Ray 09/05/22 14:05 IMPRESSION: Possible left upper lobe peribronchiolar increased markings/consolidation. Repeat study recommended when feasible. Head CT 09/05/22 15:17 IMPRESSION: No acute intracranial pathology. Abdomen/Pelvis CT 09/05/22 15:18 IMPRESSION: 1. Moderate hydronephrosis of right kidney. No renal calculus or mass. 2. Gill catheter within the bladder. 3. No acute abnormality of the abdomen or pelvis. Fleischner guidelines were followed. Assessment and Plan (1) Pneumonia: Status: Acute (2) Sepsis: Status: Acute Plan 67/f with MS here with sepsis likely from UTI and pneumonia, high grade fevers. plan: IV Zosyn, IVF, follow culture, Tyelnol or Motrin for fever. Hypokalemia correction with IV K, Coreect hypomagnesemia, Follow cultures Lovenox for DVT prophylaxix. Admission for at least 2 midnights for treatment of sepsis with IV Abx. Time Spent With Patient Time: Total time managing care of this patient today ____ minutes. Quality Stroke Does the patient have a stroke diagnosis?: No VTE Prior VTE?: No VTE Risk Level:: Medical - moderate - high VTE Device Contraindication: Treatment Not Indicated VTE Drug Contraindication: N/A - Med Ordered
[2022-09-05 17:45] LABS: Influenza A PCR NEGATIVE (Negative); Influenza B PCR NEGATIVE (Negative); Resp Syncy Virus RNA Qual PCR NEGATIVE (Negative); SARS COV2 PCR INHOUSE NEGATIVE (Negative)
[2022-09-05 18:16] LABS: Reflex Lactate? 2 Y
--- NOTE | 2022-09-05 18:32 | PC.NURSE ---
patient sleeping in stretcher, no signs of distress. huggins outputting clear yellow urine. emptied 1900 ml of urine from huggins bag. patient temp sensor shows patient is febrile 102. patients respirations equal and unlabored. on 2L NC
[2022-09-05 19:25] LABS: ~Lactic Acid-LAB USE ONLY 1.7 mmol/L (0.5-2.0)
[2022-09-05] MEDS: 0.9 % Sodium Chloride 1,000 ML 100 ML IVCONT (20:01)
[2022-09-05] MEDS: Magnesium Sulfate/H2O 2 GM/50 ML PIGGYBACK IV (20:01)
[2022-09-05] MEDS: Enoxaparin Sodium 40 MG/0.4 ML SYRINGE SUBCUT (20:04)
[2022-09-05] MEDS: KCl 20 mEq in 0.45% Sod 20 MEQ/1,000 ML IV.SOLN 125 MEQ IVCONT (20:04)
--- NOTE | 2022-09-05 20:45 | PC.NURSE ---
I assumed care of the pt at 1900. Pt is laying in bed, on 2 LPM O2 via NC. Pt is responsive to touch, but minimally verbal, unable to assess orientation. Pt was medicated per APR. Pt has bilateral IV's, meds given, per APR. Pt is warm to the touch and diaphoretic at this time. Pt has a huggins that is outputting clear urine, temp sensing, shows that pt temp is decreasing, approx 100.8 at most recent assessment. Pt is waiting for bed assignment at this time. Medications running in both IV's, antibiotic administration may be delayed due to IV access.
--- NOTE | 2022-09-05 20:51 | PC.NURSE ---
Spoke with brother, Damon, to give updates. [phone]
[2022-09-05] MEDS: Piperacillin Sodium/Tazobactam 4.5 GM in 0.9 % Sodium Chloride 100 ML IV (22:25)
[2022-09-06] MEDS: KCl 20 mEq in 0.45% Sod 20 MEQ/1,000 ML IV.SOLN 125 MEQ IVCONT ×3 (03:28→22:02)
[2022-09-06 04:00] VITALS: BP 106/56; PULSE 100; RESP 18; TEMP 36.6; O2SAT 96
[2022-09-06] MEDS: 0.9 % Sodium Chloride 1,000 ML 100 ML IVCONT (05:08)
[2022-09-06 07:27] LABS: Alanine Aminotransferase 8 U/L (0-31); Albumin Level 3.1 g/dL (3.5-5.0); Alkaline Phosphatase 49 U/L (39-117); Anion Gap 13 (12-20); Aspartate Amino Transferase 30 U/L (5-31); Bilirubin Total 0.6 mg/dL (0.0-1.0); Blood Urea Nitrogen 19 mg/dL (9-16); Carbon Dioxide 20 mmol/L (22-29); Chloride 113 mmol/L (96-108); Estimated Glomerular Filt Rate 52; Glucose Random 95 mg/dL (60-115); Potassium 3.4 mmol/L (3.3-5.1); Sodium 143 mmol/L (135-145); Total Protein 6.1 g/dL (6.5-8.0)
[2022-09-06 07:37] VITALS: BP 128/69; PULSE 113; RESP 20; TEMP 37.1; O2SAT 100
[2022-09-06] MEDS: Piperacillin Sodium/Tazobactam 4.5 GM in 0.9 % Sodium Chloride 100 ML IV ×3 (08:52→21:42)
--- NOTE | 2022-09-06 10:46 | P.PNIM_ITS ---
Subjective Subjective Date of Service: 09/07/22 Interval History: Follow-up on sepsis, UTI. She is more awake and alert, communicating more than yesterday. Fever resolved Review of Systems No fever Physical Exam Vital Signs: Vital Signs: Last Vital Signs Temp 98.8 F 09/06/22 07:37 Pulse 113 H 09/06/22 07:37 Resp 20 09/06/22 07:37 BP 128/69 09/06/22 07:37 Pulse Ox 100 09/06/22 07:37 O2 Del Method Nasal Cannula 09/06/22 07:37 O2 Flow Rate 3 09/06/22 07:37 BMI result Body Mass Index 25.7 Const: Other: General: AO X 2, no acute distress Resp: CTA bilateral CVS: S1,S2,RRR GI: +BS, NT, no distention Skin: No rash Neuro: motor grossly intact Psych: appropriate affect Objective Data Active Medications Acetaminophen (Acetaminophen 325 Mg Tablet) 650 mg PO Q6H PRN PRN Reason: Pain, Mild (Pain Scale 1-3) Acetaminophen (Acetaminophen Supp 650 Mg Supp.Rect) 650 mg [place] Q6H PRN PRN Reason: Pain, Mild (Pain Scale 1-3) Acetaminophen (Acetaminophen 325 Mg Tablet) 975 mg PO TID [facility] Acetaminophen (Acetaminophen Supp 650 Mg Supp.Rect) 650 mg [place] Q4H PRN PRN Reason: Fever Or Pain Bisacodyl (Bisacodyl 10 Mg Supp.Rect) 10 mg [place] DAILY PRN PRN Reason: Constipation Cyanocobalamin (Cyanocobalamin (Vitamin B-12) 1,000 Mcg Tablet) 1,000 mcg PO DAILY [facility] Enoxaparin Sodium (Enoxaparin Sodium 40 Mg/0.4 Ml Syringe) 40 mg SUBCUT Q24H [facility] Last Admin: 09/05/22 20:04 Dose: 40 mg Documented By: EFRAIN Sodium Chloride (Ns) 1,000 mls @ 100 mls/hr IVCONT .Q10H [facility] Last Admin: 09/06/22 05:08 Dose: 100 mls/hr Documented By: YOANA Potassium Chloride/Sodium Chloride (Kcl 20 Meq In 0.45% Sod) 20 meq in 1,000 mls @ 125 mls/hr IVCONT .Q8H [facility] Last Admin: 09/06/22 03:28 Dose: 125 mls/hr Documented By: YOANA Piperacillin Sod/Tazobactam (Sod 4.5 gm/ Sodium Chloride) 100 mls @ 200 mls/hr IV Q6H [facility] Last Infusion: 09/06/22 09:29 Dose: 0 mls/hr Documented By: DAISY Magnesium Hydroxide (Milk Of Magnesia 30 Ml Oral.Susp) 30 ml PO DAILY PRN PRN Reason: Constipation Meclizine HCl (Meclizine Hcl 12.5 Mg Tablet) 12.5 mg PO TID PRN PRN Reason: Dizziness Ondansetron HCl (Ondansetron Hcl 4 Mg/2 Ml Vial) 4 mg IVPUSH Q8H PRN PRN Reason: Nausea and Vomiting Pharmacy Consult (Consult Rx Perform Med Rec) 1 each MISCELLANE ONCE PRN PRN Reason: Consult order Sodium Biphosphate/Sodium Phosphate (Sodium Phosphate,[place]-Dibasic 133 Ml Enema) 118 ml [place] DAILY PRN PRN Reason: Constipation Labs 09/05/22 13:38 09/06/22 06:47 Labs: Laboratory Results - last 24 hr 09/05/22 09/05/22 09/05/22 13:38 13:38 13:38 MCV 97.3 MCH 31.4 MCHC 32.2 RDW 13.3 Plt Count 196 MPV 8.4 L Immature Gran % (Auto) 0.3 Neut % (Auto) 96.4 H Lymph % (Auto) 2.7 L [place] % (Auto) 0.3 L Eos % (Auto) 0.0 Baso % (Auto) 0.3 Lymph # (Auto) 0.4 L [place] # (Auto) 0.0 L Eos # (Auto) 0.0 Baso # (Auto) 0.0 Abs Immat Gran (auto) 0.04 H Absolute Neuts (auto) 12.3 H Absolute Nucleated RBC 0.000 Nucleated RBC % (auto) 0.0 Smear Tech's Comments VERIFIED PT 11.3 INR 1.0 APTT 28.3 Anion Gap Estim Creat Clear Calc Estimated GFR Random Glucose Lactic Acid 2.3 H* Lactic Acid F/U @ 2Hr Lactic Acid F/U @ 4Hr Calcium Magnesium Total Bilirubin Direct Bilirubin AST ALT Alkaline Phosphatase Total Creatine Kinase Total Protein Albumin Urine Color Urine Appearance Urine pH Ur Specific [place] Urine Protein Urine Glucose (UA) Urine Ketones Urine Blood Urine Nitrite Ur Leukocyte Esterase Urine RBC Urine WBC Ur Squamous Epith Cells Urine Bacteria Hyaline Casts C. difficile Tox B Gene Influenza Type A (PCR) Influenza Type B (PCR) RSV RNA Qual (PCR) SARS-CoV-2 RNA (RT-PCR) 09/05/22 09/05/22 09/05/22 13:38 13:52 14:19 MCV MCH MCHC RDW Plt Count MPV Immature Gran % (Auto) Neut % (Auto) Lymph % (Auto) [place] % (Auto) Eos % (Auto) Baso % (Auto) Lymph # (Auto) [place] # (Auto) Eos # (Auto) Baso # (Auto) Abs Immat Gran (auto) Absolute Neuts (auto) Absolute Nucleated RBC Nucleated RBC % (auto) Smear Tech's Comments PT INR APTT Anion Gap 11 L Estim Creat Clear Calc 53.6 Estimated GFR > 60 Random Glucose 87 Lactic Acid Lactic Acid F/U @ 2Hr Lactic Acid F/U @ 4Hr Calcium 7.2 L Magnesium 1.5 L Total Bilirubin 0.7 Direct Bilirubin 0.2 AST 20 ALT 6 Alkaline Phosphatase 50 Total Creatine Kinase 64 Total Protein 5.8 L Albumin 3.1 L Urine Color Urine Appearance Urine pH Ur Specific [place] Urine Protein Urine Glucose (UA) Urine Ketones Urine Blood Urine Nitrite Ur Leukocyte Esterase Urine RBC Urine WBC Ur Squamous Epith Cells Urine Bacteria Hyaline Casts C. difficile Tox B Gene NEGATIVE Influenza Type A (PCR) NEGATIVE Influenza Type B (PCR) NEGATIVE RSV RNA Qual (PCR) NEGATIVE SARS-CoV-2 RNA (RT-PCR) NEGATIVE 09/05/22 09/05/22 09/05/22 14:45 16:13 19:04 MCV MCH MCHC RDW Plt Count MPV Immature Gran % (Auto) Neut % (Auto) Lymph % (Auto) [place] % (Auto) Eos % (Auto) Baso % (Auto) Lymph # (Auto) [place] # (Auto) Eos # (Auto) Baso # (Auto) Abs Immat Gran (auto) Absolute Neuts (auto) Absolute Nucleated RBC Nucleated RBC % (auto) Smear Tech's Comments PT INR APTT Anion Gap Estim Creat Clear Calc Estimated GFR Random Glucose Lactic Acid Lactic Acid F/U @ 2Hr 2.5 H* Lactic Acid F/U @ 4Hr 1.7 Calcium Magnesium Total Bilirubin Direct Bilirubin AST ALT Alkaline Phosphatase Total Creatine Kinase Total Protein Albumin Urine Color Yellow Urine Appearance Cloudy Urine pH 6.5 Ur Specific [place] <= 1.005 Urine Protein Negative Urine Glucose (UA) Negative Urine Ketones Negative Urine Blood Large (3+) H Urine Nitrite Negative Ur Leukocyte Esterase Large (3+) H Urine RBC >20 H Urine WBC >50 H Ur Squamous Epith Cells 0-2 Urine Bacteria Trace Hyaline Casts 0-2 C. difficile Tox B Gene Influenza Type A (PCR) Influenza Type B (PCR) RSV RNA Qual (PCR) SARS-CoV-2 RNA (RT-PCR) 09/06/22 06:47 MCV MCH MCHC RDW Plt Count MPV Immature Gran % (Auto) Neut % (Auto) Lymph % (Auto) [place] % (Auto) Eos % (Auto) Baso % (Auto) Lymph # (Auto) [place] # (Auto) Eos # (Auto) Baso # (Auto) Abs Immat Gran (auto) Absolute Neuts (auto) Absolute Nucleated RBC Nucleated RBC % (auto) Smear Tech's Comments PT INR APTT Anion Gap 13 Estim Creat Clear Calc 41.0 Estimated GFR 52 Random Glucose 95 Lactic Acid Lactic Acid F/U @ 2Hr Lactic Acid F/U @ 4Hr Calcium 8.0 L D Magnesium Total Bilirubin 0.6 Direct Bilirubin AST 30 ALT 8 Alkaline Phosphatase 49 Total Creatine Kinase Total Protein 6.1 L Albumin 3.1 L Urine Color Urine Appearance Urine pH Ur Specific [place] Urine Protein Urine Glucose (UA) Urine Ketones Urine Blood Urine Nitrite Ur Leukocyte Esterase Urine RBC Urine WBC Ur Squamous Epith Cells Urine Bacteria Hyaline Casts C. difficile Tox B Gene Influenza Type A (PCR) Influenza Type B (PCR) RSV RNA Qual (PCR) SARS-CoV-2 RNA (RT-PCR) Microbiology Microbiology Results: Microbiology 09/05/22 13:38 Blood Culture - Preliminary Blood - Venous Gram negative aurea 09/05/22 14:19 Blood Culture - Preliminary Blood - Venous Gram negative aurea Assessment and Plan (1) Sepsis: Status: Acute (2) Pneumonia: Status: Acute Plan 67/f with MS here with sepsis likely from UTI and pneumonia, high grade fevers. plan: Sepsis due gram negative UTI and bacteremia, PNA, repeat cbc IV Zosyn since 09/05, IVF, follow culture sensitivity, Tyelnol or Motrin for fever., follow culture sensitivity Hypokalemia correction with IV K, hypomagnesemia supplement given MS no acute exacerbation Lovenox for DVT prophylaxix. Admission for at least 2 midnights for treatment of sepsis with IV Abx. Time Spent With Patient Time: Total time managing care of this patient today ____ minutes. Quality Stroke Does the patient have a stroke diagnosis?: No VTE Prior VTE?: No VTE Risk Level:: Medical - moderate - high VTE Device Contraindication: Treatment Not Indicated VTE Drug Contraindication: N/A - Med Ordered
--- NOTE | 2022-09-06 11:04 | MHC.CM.PN ---
IMM 09/06 given to brother/HCP Damon via telephone and copy will be sent to him via certified mail. Pt admitted with dx sepsis. Pt lives at [facility] and is a bed hold there. D/C plan to return to [facility] when medically cleared. Pt was showing some confusion, so brother/HCP Damon [phone] was called to confirm information. Pt will need transport via BLS/[facility]. No PCP. No covid vax.
--- NOTE | 2022-09-06 11:09 | MHC.CM.PN ---
IMM 09/06 given to brother/HCP Damon via telephone and copy will be sent to him via certified mail. Pt admitted with dx sepsis. Pt lives at [facility] and is a bed hold there. D/C plan to return to [facility] when medically cleared. Pt was showing some confusion, so brother/HCP Damon [phone] was called to confirm information. Pt will need transport via S/[facility]. PCP: Arjun Pat
[2022-09-06 11:28] VITALS: BP 107/59; PULSE 114; RESP 20; TEMP 37.6; O2SAT 98
[2022-09-06 11:48] LABS: Hematocrit 34.9 % (37.0-47.0); Hemoglobin 11.1 g/dl (12.0-16.0); Mean Corpuscular HGB Conc 31.8 g/dl (31.0-35.0); Mean Corpuscular Hemoglobin 31.6 pg (27.0-33.0); Mean Corpuscular Volume 99.4 fL (80.0-98.0); Platelet Count 147 X10*3/uL (160-400); Red Blood Count 3.51 X10*6/uL (4.20-5.50); Red Cell Distribution Width 14.1 % (11.0-16.0)
[2022-09-06 11:58] LABS: White Blood Count 47.9 X10*3/uL (4.8-10.8)
[2022-09-06 12:17] LABS: Blood Urea Nitrogen 21 mg/dL (9-16); Calcium 7.9 mg/dL (8.4-10.2); Creatinine Clr Calc Pharmacy 42.6; Estimated Glomerular Filt Rate 54; Glucose Random 91 mg/dL (60-115)
--- NOTE | 2022-09-06 14:21 | PC.NURSE ---
report received from overnight RN, remedial masseur per APR. Order to discontinue huggins, huggins cath pulled at 1300. Pt due to void at 1900. Safety precautions remain in place, call martins within reach.
[2022-09-06] MEDS: Acetaminophen 325 MG TABLET 975 MG PO ×2 (14:28→21:49)
[2022-09-06 15:32] LABS: Chloride 112 mmol/L (96-108); Potassium 3.7 mmol/L (3.3-5.1); Sodium 142 mmol/L (135-145)
[2022-09-06 15:49] VITALS: BP 113/57; PULSE 100; RESP 18; TEMP 36.2; O2SAT 95
[2022-09-06 15:53] LABS: Adenovirus F 40/41 Not Detected (Not Detect.); Astrovirus Not Detected (Not Detect.); Campylobacter Not Detected (Not Detect.); Cryptosporidium Not Detected (Not Detect.); Cyclospora cayetanensis Not Detected (Not Detect.); E. coli EAEC Not Detected (Not Detect.); E. coli EPEC Not Detected (Not Detect.); E. coli ETEC Not Detected (Not Detect.); E. coli O157 Not Detected (Not Detect.); E. coli STEC Not Detected (Not Detect.); Entamoeba histolytica Not Detected (Not Detect.); Giardia lamblia Not Detected (Not Detect.); Norovirus GI/GII Not Detected (Not Detect.); Plesiomonas shigelloides Not Detected (Not Detect.); Rotavirus A Not Detected (Not Detect.); Salmonella Not Detected (Not Detect.); Sapovirus Not Detected (Not Detect.); Shigella sp./EIEC Not Detected (Not Detect.); Vibrio Not Detected (Not Detect.); Vibrio Cholerae Not Detected (Not Detect.); Yersinia enterocolitica Not Detected (Not Detect.)
[2022-09-06] MEDS: Enoxaparin Sodium 40 MG/0.4 ML SYRINGE SUBCUT (17:54)
[2022-09-06 19:40] VITALS: BP 129/85; PULSE 113; RESP 18; TEMP 36.7; O2SAT 99
[2022-09-06 21:26] LABS: Carbon Dioxide 17 mmol/L (22-29)
[2022-09-06 23:43] VITALS: BP 114/57; PULSE 110; RESP 17; TEMP 36.3; O2SAT 96
[2022-09-07] MEDS: Piperacillin Sodium/Tazobactam 4.5 GM in 0.9 % Sodium Chloride 100 ML IV ×4 (02:07→19:32)
[2022-09-07 03:06] VITALS: BP 122/59; PULSE 106; RESP 17; TEMP 36.9; O2SAT 99
[2022-09-07] MEDS: KCl 20 mEq in 0.45% Sod 20 MEQ/1,000 ML IV.SOLN 125 MEQ IVCONT ×2 (06:05→14:01)
[2022-09-07 07:48] VITALS: BP 132/69; PULSE 100; RESP 20; TEMP 36.7; O2SAT 99
--- NOTE | 2022-09-07 08:53 | P.PNIM_ITS ---
Subjective Subjective Date of Service: 09/07/22 Interval History: Pt is more alert and more interactive, no fever, WBC went up markedly yesterday from 12 to 47K Physical Exam Vital Signs: Vital Signs: Last Vital Signs Temp 98.1 F 09/07/22 07:48 Pulse 100 09/07/22 07:48 Resp 20 09/07/22 07:48 BP 132/69 09/07/22 07:48 Pulse Ox 99 09/07/22 07:48 O2 Del Method Nasal Cannula 09/07/22 07:48 O2 Flow Rate 3 09/07/22 07:48 BMI result Body Mass Index 25.7 Const: Other: General: AO X 2, no acute distress Resp: CTA bilateral CVS: S1,S2,RRR GI: +BS, NT, no distention Skin: No rash Neuro: motor grossly intact Psych: appropriate affect Objective Data Active Medications Acetaminophen (Acetaminophen 325 Mg Tablet) 650 mg PO Q6H PRN PRN Reason: Pain, Mild (Pain Scale 1-3) Acetaminophen (Acetaminophen Supp 650 Mg Supp.Rect) 650 mg [place] Q6H PRN PRN Reason: Pain, Mild (Pain Scale 1-3) Acetaminophen (Acetaminophen 325 Mg Tablet) 975 mg PO TID [facility] Last Admin: 09/06/22 21:49 Dose: 975 mg Documented By: RUBEN Acetaminophen (Acetaminophen Supp 650 Mg Supp.Rect) 650 mg [place] Q4H PRN PRN Reason: Fever Or Pain Bisacodyl (Bisacodyl 10 Mg Supp.Rect) 10 mg [place] DAILY PRN PRN Reason: Constipation Cyanocobalamin (Cyanocobalamin (Vitamin B-12) 1,000 Mcg Tablet) 1,000 mcg PO DAILY [facility] Enoxaparin Sodium (Enoxaparin Sodium 40 Mg/0.4 Ml Syringe) 40 mg SUBCUT Q24H [facility] Last Admin: 09/06/22 17:54 Dose: 40 mg Documented By: DAISY Sodium Chloride (Ns) 1,000 mls @ 100 mls/hr IVCONT .Q10H [facility] Last Admin: 09/07/22 00:37 Dose: Not Given Documented By: RUBEN Non-Admin Reason: IV Running Potassium Chloride/Sodium Chloride (Kcl 20 Meq In 0.45% Sod) 20 meq in 1,000 mls @ 125 mls/hr IVCONT .Q8H [facility] Last Admin: 09/07/22 06:05 Dose: 125 mls/hr Documented By: RUBEN Piperacillin Sod/Tazobactam (Sod 4.5 gm/ Sodium Chloride) 100 mls @ 200 mls/hr IV Q6H [facility] Last Infusion: 09/07/22 03:43 Dose: 0 mls/hr Documented By: RUBEN Magnesium Hydroxide (Milk Of Magnesia 30 Ml Oral.Susp) 30 ml PO DAILY PRN PRN Reason: Constipation Meclizine HCl (Meclizine Hcl 12.5 Mg Tablet) 12.5 mg PO TID PRN PRN Reason: Dizziness Ondansetron HCl (Ondansetron Hcl 4 Mg/2 Ml Vial) 4 mg IVPUSH Q8H PRN PRN Reason: Nausea and Vomiting Pharmacy Consult (Consult Rx Perform Med Rec) 1 each MISCELLANE ONCE PRN PRN Reason: Consult order Sodium Biphosphate/Sodium Phosphate (Sodium Phosphate,[place]-Dibasic 133 Ml Enema) 118 ml [place] DAILY PRN PRN Reason: Constipation Labs 09/06/22 11:36 09/06/22 11:36 Labs: Laboratory Results - last 24 hr 09/06/22 09/06/22 09/06/22 11:36 11:36 12:10 MCV 99.4 H MCH 31.6 MCHC 31.8 RDW 14.1 Plt Count 147 L MPV 9.0 L Absolute Nucleated RBC 0.000 Nucleated RBC % (auto) 0.0 Smear Path Review Anion Gap TNP Estim Creat Clear Calc 42.6 Estimated GFR 54 Random Glucose 91 Calcium 7.9 L Stl C. cayetanensis PCR Not Detected Stool Rotavirus A PCR Not Detected Stl Adenov F 40/41 PCR Not Detected Stool Astrovirus (PCR) Not Detected Stool Campylobacter PCR Not Detected Stool Cryptosporidium PCR Not Detected Stl Sh Tox Pr E STEC PCR Not Detected Stool E coli O157 PCR Not Detected Stl Enterotoxigenic E PCR Not Detected Stool EPEC (PCR) Not Detected Stool EAEC (PCR) Not Detected Stl E. histolytica PCR Not Detected Stool Giardia Lamblia PCR Not Detected Stl P. shigelloides PCR Not Detected Stool Salmonella PCR Not Detected Stool Sapovirus (PCR) Not Detected Stl Shigella/EIEC PCR Not Detected St Y.enterocolitica PCR Not Detected Stool Vibrio (PCR) Not Detected Stl Vibrio cholerae PCR Not Detected Stl Norovirus GI/GII PCR Not Detected Microbiology Microbiology Results: Microbiology 09/05/22 14:19 Blood Culture - Final Blood - Venous Escherichia coli 09/05/22 13:38 Blood Culture - Final Blood - Venous Escherichia coli 09/05/22 Unknown Urine Culture - Preliminary Urine Catheterized - Gill Catheter Assessment and Plan (1) Sepsis: Status: Acute (2) Pneumonia: Status: Acute Plan 67/f with MS here with sepsis likely from UTI and pneumonia, high grade fevers. plan: Sepsis due gram negative UTI and bacteremia, PNA, clinically responding to therapy. Urine culture = e. coli sensitive to everthing Zosyn 09/05-09/07, Ceftriaxone 09/07, Repeat CBC today Leukocytosis 12 to 47 the next day, and clinically pt better, ? error vs reactive, recheck Hypokalemia, corrected hypomagnesemia, corrected MS no acute exacerbation Lovenox for DVT prophylaxix. need for inpt: IV abx for sepsis not yet resolved. Time Spent With Patient Time: Total time managing care of this patient today ____ minutes. Quality Stroke Does the patient have a stroke diagnosis?: No VTE Prior VTE?: No VTE Risk Level:: Medical - moderate - high VTE Device Contraindication: Treatment Not Indicated VTE Drug Contraindication: N/A - Med Ordered
--- NOTE | 2022-09-07 09:00 | P.CDIM_ITS ---
PROVIDER RESPONSE TEXT: To clarify, the appropriate diagnosis supported by the clinical indicators: Encephalopathy: metabolic encephalopathy QUERY TEXT: PHYSICIAN'S DOCUMENTATION REQUEST Date of Query: 09/06/2022 10:33 AM EDT Patient Name: Cecy Alcala Admit Date: 09/05/2022 Dear Steve Garcia, A review of the medical record indicates additional documentation may be needed. Please review below and update the documentation accordingly. Clinical Indicators: Per ER Physician Documentation 09/05/22: Lethargic and oriented x 1 decrease in mentation Based on the above, could you clarify if any of the following, is the most likely etiology of the con fusion/altered mental status? Encephalopathy Indicate type such as metabolic, toxic, septic, alcoholic, hypertensive, etc. Dementia Indicate type of dementia, such as Alzheimer's, senile, vascular, Lewy body, etc. Acute delirium Indicate known or suspected etiology, such as postoperative, due to narcotics or other drugs, etc. Baseline dementia Indicate type, such as Alzheimer's, senile, vascular, Lewy body, etc., and any associated behavioral disturbances (aggressive, combative, or violent behavior) Acute or subacute confusional state due to Specify known or suspected etiology Other (explain)Clinically unable to determine (explain)Thank you, Sofie Godinez RN Use of terms such as suspected, likely, concern for, or probable (associated with a specific diagnosi s that is being evaluated, monitored, or treated as if it exists) are acceptable and can be coded in the inpatient se tting, when documented at the time of discharge. Please use your independent medical judgment in providing your response. THIS QUERY IS PART OF THE PERMANENT MEDICAL RECORD
[2022-09-07] MEDS: Cyanocobalamin (Vitamin B-12) 1,000 MCG TABLET 1000 MCG PO (09:21)
[2022-09-07] MEDS: Acetaminophen 325 MG TABLET 975 MG PO ×3 (09:21→19:35)
[2022-09-07 09:24] LABS: Baso%MD 0.1 %; Eos%MD 0.2 %; Hematocrit 37.7 % (37.0-47.0); Hemoglobin 11.9 g/dl (12.0-16.0); IG%MD 20.1 %; Lymph%MD 2.4 %; Mean Corpuscular HGB Conc 31.6 g/dl (31.0-35.0); Mean Corpuscular Hemoglobin 31.8 pg (27.0-33.0); Mean Corpuscular Volume 100.8 fL (80.0-98.0); Mean Platelet Volume 9.7 fL (9.4-12.3); Mono%MD 2.4 %; Neut%MD 74.8 %; Platelet Count 142 X10*3/uL (160-400); Red Blood Count 3.74 X10*6/uL (4.20-5.50); Red Cell Distribution Width 14.1 % (11.0-16.0)
[2022-09-07 09:48] LABS: WBC ABN SCTR FOR CBC 1
[2022-09-07 09:50] LABS: White Blood Count 50.8 X10*3/uL (4.8-10.8)
[2022-09-07 10:33] LABS: Band Neutrophils Percent 17 % (3-5); Lymphocytes Absolute Manual 1.5 X10*3/uL (1.2-4.9); Lymphocytes Percent Manual 3 % (20-40); Metamyelocytes Percent 2 %; Monocytes Absolute Manual 0.5 X10*3/uL (0.1-1.2); Monocytes Percent Manual 1 % (2-11); Neutrophils Absolute Manual 47.8 X10*3/uL (2.0-8.3); Neutrophils Percent Manual 77 % (45-73)
[2022-09-07 10:43] LABS: Macrocytosis 1+ (5-14) /OIF; RBC Morphology NOTED
[2022-09-07 10:44] LABS: Acanthocytes 3+ (>5) /OIF; Dohle Bodies PRESENT; Schistocytes 1+ (0-2) /OIF; Toxic Vacuolation PRESENT
[2022-09-07 10:46] LABS: Platelet Estimate NORMAL (NORMAL); Platelet Morphology Comment NORMAL
[2022-09-07 11:26] VITALS: BP 135/65; PULSE 101; RESP 20; TEMP 36.4; O2SAT 98
[2022-09-07 15:04] VITALS: BP 133/66; PULSE 110; RESP 19; TEMP 36.9; O2SAT 97
[2022-09-07 15:11] LABS: Lactic Acid 1.3 mmol/L (0.5-2.0)
[2022-09-07 15:15] LABS: Anion Gap 10 (12-20); Blood Urea Nitrogen 15 mg/dL (9-16); Calcium 8.4 mg/dL (8.4-10.2); Carbon Dioxide 19 mmol/L (22-29); Chloride 111 mmol/L (96-108); Creatinine Clr Calc Pharmacy 56.4; Estimated Glomerular Filt Rate > 60; Glucose Random 81 mg/dL (60-115); Potassium 4.4 mmol/L (3.3-5.1); Sodium 136 mmol/L (135-145)
[2022-09-07] MEDS: Enoxaparin Sodium 40 MG/0.4 ML SYRINGE SUBCUT (18:50)
[2022-09-07 19:45] VITALS: BP 135/67; PULSE 106; RESP 18; TEMP 35.9; O2SAT 97
[2022-09-07] MEDS: ondansetron HCL 4 MG/2 ML VIAL IVPUSH (21:54)
[2022-09-07 23:31] VITALS: BP 158/81; PULSE 105; RESP 16; TEMP 36.9; O2SAT 96
[2022-09-08] MEDS: Piperacillin Sodium/Tazobactam 4.5 GM in 0.9 % Sodium Chloride 100 ML IV ×2 (01:32→07:48)
[2022-09-08 02:27] VITALS: BP 137/74; PULSE 99; RESP 16; TEMP 36.8; O2SAT 97
[2022-09-08 05:40] LABS: Hematocrit 32.8 % (37.0-47.0); Hemoglobin 10.7 g/dl (12.0-16.0); Mean Corpuscular HGB Conc 32.6 g/dl (31.0-35.0); Mean Corpuscular Hemoglobin 32.5 pg (27.0-33.0); Mean Corpuscular Volume 99.7 fL (80.0-98.0); Mean Platelet Volume 9.7 fL (9.4-12.3); Platelet Count 166 X10*3/uL (160-400); Red Blood Count 3.29 X10*6/uL (4.20-5.50)
--- NOTE | 2022-09-08 05:48 | PC.NURSE ---
Lab called for a critical WBC=45.5, Dr. Pearson was informed.
[2022-09-08 07:47] VITALS: BP 149/72; PULSE 98; RESP 17; TEMP 37; O2SAT 98
[2022-09-08] MEDS: Cyanocobalamin (Vitamin B-12) 1,000 MCG TABLET 1000 MCG PO (07:48)
[2022-09-08] MEDS: Acetaminophen 325 MG TABLET 975 MG PO ×2 (07:48→20:11)
--- NOTE | 2022-09-08 08:37 | P.PNIM_ITS ---
Subjective Subjective Date of Service: 09/08/22 Interval History: Pt continues to make progress, no new issues, very high WBC is trending down Review of Systems No fever Physical Exam Vital Signs: Vital Signs: Last Vital Signs Temp 98.6 F 09/08/22 07:47 Pulse 98 09/08/22 07:47 Resp 17 09/08/22 07:47 BP 149/72 H 09/08/22 07:47 Pulse Ox 98 09/08/22 07:47 O2 Del Method Nasal Cannula 09/08/22 07:47 O2 Flow Rate 2 09/08/22 07:47 BMI result Body Mass Index 25.7 Const: Other: General: AO X 2, no acute distress Resp: CTA bilateral CVS: S1,S2,RRR GI: +BS, NT, no distention Skin: No rash Neuro: motor grossly intact Psych: appropriate affect Objective Data Active Medications Acetaminophen (Acetaminophen 325 Mg Tablet) 650 mg PO Q6H PRN PRN Reason: Pain, Mild (Pain Scale 1-3) Acetaminophen (Acetaminophen Supp 650 Mg Supp.Rect) 650 mg CA Q6H PRN PRN Reason: Pain, Mild (Pain Scale 1-3) Acetaminophen (Acetaminophen 325 Mg Tablet) 975 mg PO TID [facility] Last Admin: 09/08/22 07:48 Dose: 975 mg Documented By: YANN Acetaminophen (Acetaminophen Supp 650 Mg Supp.Rect) 650 mg CA Q4H PRN PRN Reason: Fever Or Pain Bisacodyl (Bisacodyl 10 Mg Supp.Rect) 10 mg CA DAILY PRN PRN Reason: Constipation Cyanocobalamin (Cyanocobalamin (Vitamin B-12) 1,000 Mcg Tablet) 1,000 mcg PO DAILY [facility] Last Admin: 09/08/22 07:48 Dose: 1,000 mcg Documented By: YANN Enoxaparin Sodium (Enoxaparin Sodium 40 Mg/0.4 Ml Syringe) 40 mg SUBCUT Q24H [facility] Last Admin: 09/07/22 18:50 Dose: 40 mg Documented By: MARCO A Ceftriaxone Sodium 2 gm/ (Sodium Chloride) 50 mls @ 100 mls/hr IV Q24H [facility] Magnesium Hydroxide (Milk Of Magnesia 30 Ml Oral.Susp) 30 ml PO DAILY PRN PRN Reason: Constipation Meclizine HCl (Meclizine Hcl 12.5 Mg Tablet) 12.5 mg PO TID PRN PRN Reason: Dizziness Ondansetron HCl (Ondansetron Hcl 4 Mg/2 Ml Vial) 4 mg IVPUSH Q8H PRN PRN Reason: Nausea and Vomiting Last Admin: 09/07/22 21:54 Dose: 4 mg Documented By: JENI Pharmacy Consult (Consult Rx Perform Med Rec) 1 each MISCELLANE ONCE PRN PRN Reason: Consult order Sodium Biphosphate/Sodium Phosphate (Sodium Phosphate,Tift-Dibasic 133 Ml Enema) 118 ml CA DAILY PRN PRN Reason: Constipation Labs 09/08/22 05:31 09/07/22 14:50 Labs: Laboratory Results - last 24 hr 09/06/22 09/07/22 09/07/22 11:36 08:59 14:50 MCV 100.8 H MCH 31.8 MCHC 31.6 RDW 14.1 Plt Count 142 L MPV 9.7 Absolute Nucleated RBC 0.000 Nucleated RBC % (auto) 0.0 Neutrophils % (Manual) 77 H Band Neutrophils % 17 H Lymphocytes % (Manual) 3 L Monocytes % (Manual) 1 L Metamyelocytes % 2 Abs Neuts (Manual) 47.8 H Lymphocytes # (Manual) 1.5 Monocytes # (Manual) 0.5 Metamyelocytes # 1.0 Toxic Vacuolation PRESENT Dohle Bodies PRESENT Platelet Estimate NORMAL Plt Morphology Comment NORMAL RBC Morphology NOTED Macrocytosis 1+ (5-14) Acanthocytes (Spur) 3+ (>5) Schistocytes 1+ (0-2) Smear Path Review Anion Gap 10 L Estim Creat Clear Calc 56.4 Estimated GFR > 60 Random Glucose 81 Lactic Acid Calcium 8.4 D 09/07/22 09/08/22 14:50 05:31 MCV 99.7 H MCH 32.5 MCHC 32.6 RDW 14.0 Plt Count 166 MPV 9.7 Absolute Nucleated RBC 0.000 Nucleated RBC % (auto) 0.0 Neutrophils % (Manual) Band Neutrophils % Lymphocytes % (Manual) Monocytes % (Manual) Metamyelocytes % Abs Neuts (Manual) Lymphocytes # (Manual) Monocytes # (Manual) Metamyelocytes # Toxic Vacuolation Dohle Bodies Platelet Estimate Plt Morphology Comment RBC Morphology Macrocytosis Acanthocytes (Spur) Schistocytes Smear Path Review Anion Gap Estim Creat Clear Calc Estimated GFR Random Glucose Lactic Acid 1.3 Calcium Microbiology Microbiology Results: Microbiology 09/05/22 Unknown Urine Culture - Final Urine Catheterized - Gill Catheter Escherichia coli 09/05/22 14:19 Blood Culture - Final Blood - Venous Escherichia coli 09/05/22 13:38 Blood Culture - Final Blood - Venous Escherichia coli Assessment and Plan (1) Sepsis: Status: Acute (2) UTI (urinary tract infection): Status: Acute (3) E coli bacteremia: Status: Acute Plan 67/f with MS here with sepsis likely from UTI and pneumonia, high grade fevers. plan: Sepsis due gram negative UTI and bacteremia, PNA, clinically responding to therapy. Urine culture = e. coli sensitive to everthing Zosyn 09/05-09/08, Ceftriaxone 09/08, ID consult Leukocytosis 12 to 47, then 50 and now 45, likely leukomoid reaction HypOkalemia, corrected metabolic encephalopathy due to uti, resolved hypomagnesemia, corrected MS no acute exacerbation Lovenox for DVT prophylaxix. need for inpt: IV abx for sepsis not yet resolved. Time Spent With Patient Time: Total time managing care of this patient today ____ minutes. Quality Stroke Does the patient have a stroke diagnosis?: No VTE Prior VTE?: No VTE Risk Level:: Medical - moderate - high VTE Device Contraindication: Treatment Not Indicated VTE Drug Contraindication: N/A - Med Ordered
[2022-09-08] MEDS: cefTRIAXone sodium 2 GM in 0.9 % Sodium Chloride 50 ML IV (09:32)
[2022-09-08 12:00] VITALS: BP 155/76; PULSE 94; RESP 18; TEMP 36.5; O2SAT 98
--- NOTE | 2022-09-08 14:05 | MHC.CM.PN ---
per rounds pt not ready for dc pt on a bed hold at [facility]
[2022-09-08 15:15] VITALS: BP 135/93; PULSE 81; RESP 18; TEMP 36.2; O2SAT 99
[2022-09-08] MEDS: Enoxaparin Sodium 40 MG/0.4 ML SYRINGE SUBCUT (18:11)
[2022-09-08 19:25] VITALS: BP 155/77; PULSE 104; RESP 17; TEMP 36.9; O2SAT 97
--- NOTE | 2022-09-08 21:27 | W.PM.IDCN ---
History of Present Illness Data of Consult Service Date: 09/08/22 Requesting physician: Steve Garcia Primary Care Provider: Arjun Pat MD [facility] Reason for consult: E coli bacteremia She presents with weakness,nausea and vomiting for a day. She has E coli bacteremia and right hydronephrosis. She has no fever or chills now. She is sleeping. Review of Systems Review of Systems: Yes all other systems are reviewed and are negative PMFSH Family History Family history: reviewed and not pertinent Social History Social History Household Members: Unknown / Unable to assess Unable to assess alcohol history related to: Unable to respond Alcohol intake: former Patient Tobacco Use Status: Never used Tobacco Use of substances other than those prescribed or required for medical reasons: Unknown Currently Displaying Signs/Symptoms of Drug Intoxication Withdrawal: No Advance Directives: No Advance Directives Information Provided: Yes Nutrition Risks: On aspiration precautions Patient : No : No Poor oral hygiene: No service: No Meds Allergies Allergy/AdvReac Type Severity Reaction Status Date / Time Sulfa (Sulfonamide Allergy Unknown Verified 09/05/22 12:30 Antibiotics) Active Medications: Current Medications Acetaminophen (Acetaminophen 325 Mg Tablet) 650 mg PO Q6H PRN PRN Reason: Pain, Mild (Pain Scale 1-3) Acetaminophen (Acetaminophen Supp 650 Mg Supp.Rect) [address] Q6H PRN PRN Reason: Pain, Mild (Pain Scale 1-3) Acetaminophen (Acetaminophen 325 Mg Tablet) 975 mg PO TID [facility] Last Admin: 09/08/22 20:11 Dose: 975 mg Acetaminophen (Acetaminophen Supp 650 Mg Supp.Rect) [address] Q4H PRN PRN Reason: Fever Or Pain Bisacodyl (Bisacodyl 10 Mg Supp.Rect) [address] DAILY PRN PRN Reason: Constipation Cyanocobalamin (Cyanocobalamin (Vitamin B-12) 1,000 Mcg Tablet) 1,000 mcg PO DAILY [facility] Last Admin: 09/08/22 07:48 Dose: 1,000 mcg Enoxaparin Sodium (Enoxaparin Sodium 40 Mg/0.4 Ml Syringe) 40 mg SUBCUT Q24H [facility] Last Admin: 09/08/22 18:11 Dose: 40 mg Ceftriaxone Sodium 2 gm/ (Sodium Chloride) 50 mls @ 100 mls/hr IV Q24H [facility] Last Infusion: 09/08/22 10:51 Dose: Infused Magnesium Hydroxide (Milk Of Magnesia 30 Ml Oral.Susp) 30 ml PO DAILY PRN PRN Reason: Constipation Meclizine HCl (Meclizine Hcl 12.5 Mg Tablet) 12.5 mg PO TID PRN PRN Reason: Dizziness Ondansetron HCl (Ondansetron Hcl 4 Mg/2 Ml Vial) 4 mg IVPUSH Q8H PRN PRN Reason: Nausea and Vomiting Last Admin: 09/07/22 21:54 Dose: 4 mg Pharmacy Consult (Consult Rx Perform Med Rec) 1 each MISCELLANE ONCE PRN PRN Reason: Consult order Sodium Biphosphate/Sodium Phosphate (Sodium Phosphate,Desha-Dibasic 133 Ml Enema) [address] DAILY PRN PRN Reason: Constipation Home Medications Medication Instructions Recorded Confirmed Last Taken Type acetaminophen 325 mg tablet 975 mg PO TID 09/05/22 09/05/22 Unknown History acetaminophen 650 mg rectal [address] Q4H PRN Fever Or Pain 09/05/22 09/05/22 Unknown History suppository bisacodyl 10 mg rectal suppository [address] DAILY PRN Constipation 09/05/22 09/05/22 Unknown History cyanocobalamin (vitamin B-12) 1,000 mcg PO DAILY 09/05/22 09/05/22 Unknown History 1,000 mcg tablet ferrous sulfate 325 mg (65 mg 650 mg PO Q2D 09/05/22 09/05/22 Unknown History iron) tablet,delayed release lidocaine 4 % topical patch 1 patch topical DAILY PRN Pain 09/05/22 09/05/22 Unknown History magnesium hydroxide 400 mg/5 mL 30 ml PO DAILY PRN Constipation 09/05/22 09/05/22 Unknown History oral suspension (Milk of Magnesia) meclizine 12.5 mg tablet 12.5 mg PO TID PRN Dizziness 09/05/22 09/05/22 Unknown History naloxone 4 mg/actuation nasal 4 mg intranasal Q3M PRN Opioid 09/05/22 09/05/22 Unknown History spray (Narcan) Overdose sodium phosphates 19 gram-[address] DAILY PRN Constipation 09/05/22 09/05/22 Unknown History gram/118 mL enema (Fleet Enema) Physical Exam Vital Signs: Vital Signs: Last Vital Signs Temp 98.5 F 09/08/22 19:25 Pulse 104 H 09/08/22 19:25 Resp 17 09/08/22 19:25 BP 155/77 H 09/08/22 19:25 Pulse Ox 97 09/08/22 19:25 O2 Del Method Nasal Cannula 09/08/22 19:25 O2 Flow Rate 2 09/08/22 19:25 BMI result Body Mass Index 25.7 Const: General: cooperative HEENT: Head: Yes normal to inspection Face and sinus: Yes normal facial exam Mouth: Normal oral and palatal mucosa present Teeth and gingiva: dentition normal Eyes: General: appearance normal, both eyes and all related structures Pupils: Equal, round and reactive pupils present Resp: Effort & Inspection: normal respiratory effort Cardio: Rate: regular rate Rhythm: regular rhythm GI: Palpation (GI): Soft to palpation and nontender : General: Yes no CVA tenderness Back/Spine/Pelvis: Back: no CVA tenderness Skin: General skin exam: no rashes or lesions noted Neuro: General: moves all extremities Cranial nerves: Yes Equal, round and reactive pupils present Extrem: General: Yes normal to inspection Psych: Appearance: grossly normal Results Labs 09/08/22 05:31 09/07/22 14:50 Labs: Short CBC 09/08/22 Range/Units 05:31 WBC 45.5 H* (4.8-10.8) X10*3/uL Hgb 10.7 L (12.0-16.0) g/dl Hct 32.8 L (37.0-47.0) % Plt Count 166 (160-400) X10*3/uL Microbiology Microbiology Results: Microbiology 09/05/22 Unknown Urine Catheterized - Gill Catheter Urine Culture - Final Escherichia coli 09/05/22 14:19 Blood - Venous Blood Culture - Final Escherichia coli 09/05/22 13:38 Blood - Venous Blood Culture - Final Escherichia coli Assessment and Plan (1) E coli bacteremia: Status: Acute She has Gill catheter. There is concern over some hydronephrosis. She has E coli torre sensitive (2) UTI (urinary tract infection): Status: Acute (3) Sepsis: Status: Acute Plan Consider Urology consult. When improved po Ceftin total 14 days Time Spent With Patient Time: Total time managing care of this patient today ____ minutes.
[2022-09-08 23:56] VITALS: BP 147/75; PULSE 94; RESP 17; TEMP 36.1; O2SAT 99
[2022-09-09 03:35] VITALS: BP 135/70; PULSE 60; RESP 17; TEMP 36.6; O2SAT 96
[2022-09-09 05:55] LABS: Hematocrit 35.2 % (37.0-47.0); Hemoglobin 11.1 g/dl (12.0-16.0); Mean Corpuscular HGB Conc 31.5 g/dl (31.0-35.0); Mean Corpuscular Hemoglobin 31.2 pg (27.0-33.0); Mean Corpuscular Volume 98.9 fL (80.0-98.0); Platelet Count 168 X10*3/uL (160-400); Red Blood Count 3.56 X10*6/uL (4.20-5.50); Red Cell Distribution Width 13.7 % (11.0-16.0); White Blood Count 21.9 X10*3/uL (4.8-10.8)
[2022-09-09 07:12] VITALS: BP 169/77; PULSE 80; RESP 20; TEMP 36.4; O2SAT 98
[2022-09-09 07:42] VITALS: BP 152/78
[2022-09-09] MEDS: Acetaminophen 325 MG TABLET 975 MG PO ×3 (07:48→20:55)
[2022-09-09] MEDS: Cyanocobalamin (Vitamin B-12) 1,000 MCG TABLET 1000 MCG PO (07:48)
[2022-09-09] MEDS: cefTRIAXone sodium 2 GM in 0.9 % Sodium Chloride 50 ML IV (07:49)
--- NOTE | 2022-09-09 09:09 | HO.PM.IMPN ---
Subjective Subjective Date of Service: 09/09/22 Interval History: She is completly lucid, WBC down further to 21 Physical Exam Vital Signs: Vital Signs: Last Vital Signs Temp 97.5 F 09/09/22 07:12 Pulse 80 09/09/22 07:12 Resp 20 09/09/22 07:12 BP 152/78 H 09/09/22 07:42 Pulse Ox 98 09/09/22 07:12 O2 Del Method Nasal Cannula 09/09/22 07:12 O2 Flow Rate 2 09/09/22 07:12 BMI result Body Mass Index 25.7 Const: Other: General: AO X 3, no acute distress Resp: CTA bilateral CVS: S1,S2,RRR GI: +BS, NT, no distention Skin: No rash Neuro: motor grossly intact Psych: appropriate affect Objective Data Active Medications Acetaminophen (Acetaminophen 325 Mg Tablet) 650 mg PO Q6H PRN PRN Reason: Pain, Mild (Pain Scale 1-3) Acetaminophen (Acetaminophen Supp 650 Mg Supp.Rect) 650 mg SD Q6H PRN PRN Reason: Pain, Mild (Pain Scale 1-3) Acetaminophen (Acetaminophen 325 Mg Tablet) 975 mg PO TID [facility] Last Admin: 09/09/22 07:48 Dose: 975 mg Documented By: DEVANG Acetaminophen (Acetaminophen Supp 650 Mg Supp.Rect) 650 mg SD Q4H PRN PRN Reason: Fever Or Pain Bisacodyl (Bisacodyl 10 Mg Supp.Rect) 10 mg [place] DAILY PRN PRN Reason: Constipation Cyanocobalamin (Cyanocobalamin (Vitamin B-12) 1,000 Mcg Tablet) 1,000 mcg PO DAILY [facility] Last Admin: 09/09/22 07:48 Dose: 1,000 mcg Documented By: DEVANG Enoxaparin Sodium (Enoxaparin Sodium 40 Mg/0.4 Ml Syringe) 40 mg SUBCUT Q24H [facility] Last Admin: 09/08/22 18:11 Dose: 40 mg Documented By: FISH Ceftriaxone Sodium 2 gm/ (Sodium Chloride) 50 mls @ 100 mls/hr IV Q24H [facility] Last Infusion: 09/09/22 08:34 Dose: 0 mls/hr Documented By: DEVANG Magnesium Hydroxide (Milk Of Magnesia 30 Ml Oral.Susp) 30 ml PO DAILY PRN PRN Reason: Constipation Meclizine HCl (Meclizine Hcl 12.5 Mg Tablet) 12.5 mg PO TID PRN PRN Reason: Dizziness Ondansetron HCl (Ondansetron Hcl 4 Mg/2 Ml Vial) 4 mg IVPUSH Q8H PRN PRN Reason: Nausea and Vomiting Last Admin: 09/07/22 21:54 Dose: 4 mg Documented By: JENI Pharmacy Consult (Consult Rx Perform Med Rec) 1 each MISCELLANE ONCE PRN PRN Reason: Consult order Sodium Biphosphate/Sodium Phosphate (Sodium Phosphate,Isabela-Dibasic 133 Ml Enema) 118 ml [place] DAILY PRN PRN Reason: Constipation Labs 09/09/22 05:16 09/07/22 14:50 Labs: Laboratory Results - last 24 hr 09/09/22 05:16 MCV 98.9 H MCH 31.2 MCHC 31.5 RDW 13.7 Plt Count 168 MPV 10.0 Absolute Nucleated RBC 0.000 Nucleated RBC % (auto) 0.0 Microbiology Microbiology Results: Microbiology 09/05/22 Unknown Urine Culture - Final Urine Catheterized - Gill Catheter Escherichia coli Assessment and Plan (1) Sepsis: Status: Acute (2) UTI (urinary tract infection): Status: Acute (3) E coli bacteremia: Status: Acute Plan 67/f with MS here with sepsis likely from UTI and pneumonia, high grade fevers. plan: Sepsis due gram negative UTI and bacteremia, PNA, clinically responding to therapy. Urine culture = e. coli sensitive to everthing. WBC trending down Zosyn 09/05-09/08, Ceftriaxone 09/08, ID recommend Ceftin x 14 days at at discharge Leukocytosis 12 to 47, then 50 and now 45, 22 today likely leukomoid reaction HypOkalemia, corrected metabolic encephalopathy due to uti, resolved hypomagnesemia, corrected MS no acute exacerbation Lovenox for DVT prophylaxix. need for inpt: IV abx for sepsis not yet resolved. Time Spent With Patient Time: Total time managing care of this patient today ____ minutes. Quality Stroke Does the patient have a stroke diagnosis?: No VTE Prior VTE?: No VTE Risk Level:: Medical - moderate - high VTE Device Contraindication: Treatment Not Indicated VTE Drug Contraindication: N/A - Med Ordered
[2022-09-09 15:12] VITALS: BP 140/72; PULSE 80; RESP 18; TEMP 36.4; O2SAT 97
[2022-09-09] MEDS: Enoxaparin Sodium 40 MG/0.4 ML SYRINGE SUBCUT (17:23)
[2022-09-09 19:43] VITALS: BP 140/67; PULSE 89; RESP 17; TEMP 36.8; O2SAT 95
[2022-09-09 23:36] VITALS: BP 141/70; PULSE 90; RESP 17; TEMP 36.5; O2SAT 96
[2022-09-10 04:00] VITALS: BP 140/65; PULSE 71; RESP 17; TEMP 36.6; O2SAT 96
[2022-09-10 05:42] LABS: Hemoglobin 11.6 g/dl (12.0-16.0); Mean Corpuscular HGB Conc 32.2 g/dl (31.0-35.0); Mean Corpuscular Hemoglobin 31.6 pg (27.0-33.0); Mean Corpuscular Volume 98.1 fL (80.0-98.0); Mean Platelet Volume 9.9 fL (9.4-12.3); Platelet Count 214 X10*3/uL (160-400); Red Blood Count 3.67 X10*6/uL (4.20-5.50); Red Cell Distribution Width 13.7 % (11.0-16.0); White Blood Count 12.2 X10*3/uL (4.8-10.8)
[2022-09-10 07:42] VITALS: BP 142/80; PULSE 78; RESP 20; TEMP 36.9; O2SAT 96
--- NOTE | 2022-09-10 08:30 | PM.DS ---
DS: Providers Provider Date of Service: 09/10/22 Date of admission: 09/05/22 17:51 Primary care physician: Arjun Pat MD Consults: 09/08/22 08:42 Consult to Infectious Diseases Routine Consulting Provider: [facility] Infectious Disease Reason for consultation: bacteremia Has provider been notified: No DS: Diagnosis Discharge Diagnosis (1) Sepsis: Status: Acute (2) UTI (urinary tract infection): Status: Acute (3) E coli bacteremia: Status: Acute DS: Summary Hospital Course Hospital Course: Chief Complaint: Fever and weakness 67 year female with MS, iron deficiency, vit b12 def from SNF who is brought to the ED to be evaluated for fever, weakness, diarrhea. WBC is 12, tachycardic HR in 110's, temperature of 104. Lactic acid 2.3, mag 1.5, UA is grossly positive for UTI, CXR suggest pneumonia, CT head negative, CT of Abd/Pelvis showe a right hydronephrosis. She is giving Zosyn in the ED Hospital course: Patient presented with fever weakness confusion and was found to have a leukocytosis she, chest x-ray suggested of pneumonia, UA was positive for UTI. The patient was admitted for treatment of sepsis and was started on IV Zosyn. The following days her WBC went from a 12K to 47 K and ultimately reaching 20K. Bllood cultures came back positive for Gram-negative aurea which turned out to be E coli which is pansensitive, at that point the antibiotics were changed to ceftriaxone and she has continued to improve fever has resolved her WBC which to reach 50,000 has come down gradually to now 12,000, she is afebrile, her altered mental status which was attributed to toxic metabolic encephalopathy has resolved and she is fully lucid at this point. She was seen by Dr. Rosales from Infectious Disease with recommendation to finish 14 day course of antibiotics patient will be switched to oral Ceftin 500 mg twice daily for another 10 days to complete treatment of sepsis, bacteremia. Time Spent with Patient Time attestation: Total time managing care of this patient today ____ minutes. Discharge coordination time: Greater than 30 minutes Quality: Safe Use of Opioids Does Pt have an Active Cancer Diagnosis on the Problem List?: No Quality: Stroke Does the patient have a stroke diagnosis?: No Physical Exam Vital Signs: Vital Signs: Last Vital Signs Temp 98.4 F 09/10/22 07:42 Pulse 78 09/10/22 07:42 Resp 20 09/10/22 07:42 BP 142/80 H 09/10/22 07:42 Pulse Ox 96 09/10/22 07:42 O2 Del Method Room Air 09/10/22 07:42 O2 Flow Rate 2 09/09/22 07:12 BMI result Body Mass Index 25.7 DS: Data Data Completed and Pending Labs on day of discharge: Laboratory Results - last 24 hr 09/10/22 05:12 WBC 12.2 H RBC 3.67 L Hgb 11.6 L Hct 36.0 L MCV 98.1 H MCH 31.6 MCHC 32.2 RDW 13.7 Plt Count 214 D MPV 9.9 Absolute Nucleated RBC 0.000 Nucleated RBC % (auto) 0.0 Discharge Plan Discharge Anticipated Discharge Date/Time: 09/10/22 08:27 Patient Disposition: er [facility] Discharge Diagnosis: Sepsis, UTI, Pneumonia Referrals: Physician,Unknown J [Physician] - 1 Week Discharge Medications: New cefuroxime axetil 500 mg tablet 500 mg PO BID 10 Days Qty: 20 0RF Continued acetaminophen 325 mg Tablet 975 mg PO TID acetaminophen 650 mg Suppository 650 mg GA Q4H PRN (Reason: Fever Or Pain) lidocaine 4 % Adhesive Patch,Medicated 1 patch TOPICAL DAILY PRN (Reason: Pain) Rx Instructions: apply to left hip cyanocobalamin (vitamin B-12) 1,000 mcg Tablet 1,000 mcg PO DAILY meclizine 12.5 mg Tablet 12.5 mg PO TID PRN (Reason: Dizziness) magnesium hydroxide [Milk of Magnesia] 400 mg/5 mL Suspension 30 ml PO DAILY PRN (Reason: Constipation) bisacodyl 10 mg Suppository 10 mg GA DAILY PRN (Reason: Constipation) Fleet Enema 19-7 gram/118 mL Enema 118 ml GA DAILY PRN (Reason: Constipation) ferrous sulfate 325 mg (65 mg iron) Tablet,Delayed Release (Dr/Ec) 650 mg PO Q2D naloxone [Narcan] 4 mg/actuation [place],Non-Aerosol 4 mg INTRANASAL Q3M PRN (Reason: Opioid Overdose) Rx Instructions: spray 1 dose into ONE nostril; alternate nostrils w each dose until help arrives Discharge Orders: Discharge Order (Routine); Ordered 09/10/22 Ordered By: Steve Garcia Diet: Advance to usual diet Activity on Discharge: As tolerated Stand Alone Forms: Patient Portal Discharge page Care Plan Goals: Recovery from sepsis Health Concerns: Sepsis, UTI, bacteremia Plan of Treatment: UA admitted for sepsis, bacteremia due to E coli as well as pneumonia. UA treated with intravenous antibiotics [facility] your condition has improved significantly no longer having fever or chill and no wbc's have come down from 50,002 thousand two not 12,000. The plan now is to change the antibiotics to pills Take cefuroxime (Ceftin) as directed, follow-up with your doctor within a week. Assessment: See above
[2022-09-10] MEDS: cefTRIAXone sodium 2 GM in 0.9 % Sodium Chloride 50 ML IV (08:38)
[2022-09-10] MEDS: Acetaminophen 325 MG TABLET 975 MG PO (08:39)
[2022-09-10] MEDS: Cyanocobalamin (Vitamin B-12) 1,000 MCG TABLET 1000 MCG PO (08:39)
--- NOTE | 2022-09-10 11:43 | MHC.CM.PN ---
PT WILL DC TODAY, BACK TO [facility] AT 1300 HOURS CM CONTACTED PTS BROTHER, PEDRO LUIS [phone] AND INFORMED HIM OF DC/TIME PTS MEDICARE RIGHTS REVIEWED, HE DECLINED TO RECEIVE ANOTHER COPY
[2022-09-10 12:00] VITALS: BP 142/80; PULSE 80; RESP 20; TEMP 36.2; O2SAT 97
[2022-09-12 06:33] LABS: White Blood Count 45.5 X10*3/uL (4.8-10.8)
== END 2022-09-10 13:15 | disposition skilled nursing facility (03) | DRG 871 ==
LOC: HO.ED 14:57 → HO.EDOVER 18:02 → HO.IMC 21:11 → HO.S3 09-07 17:08
PROVIDERS: Admitting Provider Internal Medicine; Emergency Provider Student in an Organized Health Care Education/Training Program; PCP Family Medicine; Visit Provider Internal Medicine
DX: A41.51 Sepsis due to Escherichia coli [E. coli] (principal); G93.41 Metabolic encephalopathy; J18.9 Pneumonia, unspecified organism; N13.6 Pyonephrosis; Z96.0 Presence of urogenital implants; E83.42 Hypomagnesemia; E87.6 Hypokalemia; G35 Multiple sclerosis; Z20.822 Contact with and (suspected) exposure to COVID-19; Z79.899 Other long term (current) drug therapy
CPT/HCPCS: 0241U; 36415; 70450; 71045; 74177; 80048; 80053; 80076; 81001; 82550; 83605; 83735; 85007; 85025; 85027; 85610; 85730; 87040; 87077; 87086; 87088; 87186; 87205; 87493; 87507; 93005; 99285; J0696; J1650; J1885; J2405; J2543; J3475; Q9967

== ENCOUNTER → 2022-09-05 12:45 | Outpatient (BNV) | payer MEDICARE, SELFPAY | PROVIDERS: Admitting Provider Internal Medicine; Emergency Provider Student in an Organized Health Care Education/Training Program; Visit Provider Internal Medicine Cardiovascular Disease | DX: R00.0 Tachycardia, unspecified (principal); R94.31 Abnormal electrocardiogram [ECG] [EKG] | CPT/HCPCS: 93010 ==

== ENCOUNTER → 2022-09-05 17:51 | Outpatient (BNV) | payer MEDICARE, SELFPAY | PROVIDERS: Admitting Provider Internal Medicine; Emergency Provider Student in an Organized Health Care Education/Training Program; PCP Family Medicine; Visit Provider Internal Medicine | DX: A41.9 Sepsis, unspecified organism (principal); B96.20 Unspecified Escherichia coli [E. coli] as the cause of diseases classified elsewhere; N39.0 Urinary tract infection, site not specified | CPT/HCPCS: 99222 ==

== ENCOUNTER → 2022-09-05 17:51 | Outpatient (BNV) | payer MEDICARE, SELFPAY | PROVIDERS: Admitting Provider Internal Medicine; Emergency Provider Student in an Organized Health Care Education/Training Program; Visit Provider Internal Medicine | DX: A41.51 Sepsis due to Escherichia coli [E. coli] (principal); N39.0 Urinary tract infection, site not specified | CPT/HCPCS: 99223; 99232; 99233; 99239 ==

== ENCOUNTER 2023-05-04 11:57 | Inpatient (IN) | payer MEDICARE, MEDICAID, SELFPAY ==
--- NOTE | ~2023-05-04 | XR_ITS ---
EXAMINATION: XR CHEST CLINICAL INFORMATION: Fever. COMPARISON: Chest x-ray September 05, 2022 TECHNIQUE: Frontal portable view of the chest was obtained. 0158 hours FINDINGS: The chin overlies lung apices. No acute abnormality of the chest. No significant abnormality is noted involving the heart, lungs, mediastinum, bony thorax or soft tissues. XR/XR chest 1V IMPRESSION: Unremarkable examination.
[2023-05-04 12:17] VITALS: BP 146/66; PULSE 121; RESP 12; TEMP 37.3; O2SAT 98; BMI 21.6
--- NOTE | 2023-05-04 13:16 | ECG_ITS ---
Test Reason : ALTERED MENTAL STATUS Blood Pressure : / mmHG Vent. Rate : 114 BPM Atrial Rate : 114 BPM P-R Int : 134 ms QRS Dur : 084 ms QT Int : 326 ms P-R-T Axes : 065 011 068 degrees QTc Int : 449 ms Sinus tachycardia Nonspecific T wave abnormality Abnormal ECG When compared with ECG of 05-SEP-2022 12:45, ST no longer depressed in Anterior leads Nonspecific T wave abnormality, improved in Lateral leads Referred By: Jarad Bermeo Electronically Signed By:IRINA ARTHUR MD
--- NOTE | 2023-05-04 13:21 | ED.GENADULT ---
HPI - General Adult General Chief complaint: Altered Mental Status Stated complaint: AMS WEAKNESS HEADACHE Time Seen by Provider: 05/04/23 13:11 History of Present Illness HPI narrative: The patient is a 68-year-old woman who lives at a local assisted living facility. Today she was sent to the emergency room for evaluation because of increasing weakness and confusion today. The patient is awake but is a poor historian. She knows that she is at a hospital but could not tell me what hospital. She says that she was sent here because of ?sepsis. ? However she was not able to say if she had had a fever. She denies a cough. She denies abdominal pain. She denies any urinary discomfort. She admits to feeling weak. Was last hospitalized this hospital last summer in August for E coli bacteremia secondary to urinary source Related Data Home Medications Medication Instructions Recorded Confirmed acetaminophen 325 mg tablet 975 mg PO TID 09/05/22 05/04/23 acetaminophen 650 mg rectal 650 mg CA Q4H PRN Fever Or Pain 09/05/22 05/04/23 suppository bisacodyl 10 mg rectal suppository 10 mg CA DAILY PRN Constipation 09/05/22 05/04/23 cyanocobalamin (vitamin B-12) 1,000 mcg PO DAILY 09/05/22 05/04/23 1,000 mcg tablet ferrous sulfate 325 mg (65 mg 325 mg PO DAILY 09/05/22 05/04/23 iron) tablet,delayed release lidocaine 4 % topical patch 1 patch topical DAILY PRN Pain 09/05/22 05/04/23 magnesium hydroxide 400 mg/5 mL 30 ml PO DAILY PRN Constipation 09/05/22 05/04/23 oral suspension (Milk of Magnesia) meclizine 12.5 mg tablet 12.5 mg PO TID PRN Dizziness 09/05/22 05/04/23 naloxone 4 mg/actuation nasal 4 mg intranasal Q3M PRN Opioid 09/05/22 05/04/23 spray (Narcan) Overdose sodium phosphates 19 gram-7 118 ml CA DAILY PRN Constipation 09/05/22 05/04/23 gram/118 mL enema (Fleet Enema) ascorbic acid (vitamin C) 500 mg 500 mg PO Q2D 05/04/23 05/04/23 tablet diclofenac sodium 1 % topical gel 4 g topical DAILY 05/04/23 05/04/23 sumatriptan succinate 50 mg tablet 50 mg PO Q24H PRN Headache 05/04/23 05/04/23 Allergies Allergy/AdvReac Type Severity Reaction Status Date / Time Sulfa (Sulfonamide Allergy Unknown Verified 09/05/22 12:30 Antibiotics) Review of Systems Review of Systems: Yes all other systems are reviewed and are negative [facility] Social History Social History Household Members: Other Housing: Assisted Living Facility Unable to assess alcohol history related to: Unable to respond Alcohol intake: former Patient Tobacco Use Status: Never used Tobacco Smoked in Last 30 Days: No Use of substances other than those prescribed or required for medical reasons: No Have you been hit, kicked, punched, or otherwise hurt by someone within the past year? If so, by whom?: No Do you feel safe in your current relationship?: No Current Relationship Is there a partner from a previous relationship who is making you feel unsafe now?: No Are you made to feel afraid or neglected: No Advance Directives: Yes Advance Directives on File: Yes Advance Directives Date on File: 09/12/22 Do you have thoughts of harming others: None Recently lost weight without trying: No Nutrition Risks: No Nutritional Risk Patient : No : No Poor oral hygiene: No service: No Physical Exam ED Vital Signs: Vital Signs - 24 hr 05/04/23 12:17 05/04/23 13:30 05/04/23 15:20 Temperature 99.2 F 102.8 F H 102.1 F H Pulse Rate 121 H 111 H Respiratory Rate 12 18 Blood Pressure 146/66 H 139/70 Pulse Oximetry 98 94 Oxygen Delivery Method Room Air Room Air 05/04/23 17:04 Temperature 98.9 F Pulse Rate 108 H Respiratory Rate 19 Blood Pressure 150/72 H Pulse Oximetry 96 Oxygen Delivery Method Room Air BMI result Body Mass Index 21.6 Const Other: The patient was lying on the hospital stretcher with her head slumped forward. She looked asleep but responded to verbal stimuli. She seemed quite weak. Not seem in pain or respiratory distress. HENMT Other: Face is symmetrical. Mucous membranes moist Eyes Other: Pupils are round equal, conjunctivae are clear Neck Other: No JVD. No adenopathy. Neck is supple. Resp Effort & Inspection: normal respiratory effort Auscultation: clear to auscultation bilaterally Cardio Rate: tachycardic Rhythm: regular rhythm Heart sounds: S1 normal heart sound present and S2 normal heart sound present GI Other: Abdomen is soft and seems nontender Skin Other: Skin is dry and unremarkable Neuro Other: The patient is awake but seems mildly disoriented. She knows that she has at a hospital. She is able to tell me that she comes from an assisted living facility but could not tell me the name. She is quite diffusely weak. Her face is symmetrical. Speech is clear. She moves her extremities symmetrically. No obvious focal finding Extrem Other: No peripheral edema, no calf swelling or tenderness Medications Administered Generic Name Dose Route Start Last Admin Trade Name Freq PRN Reason Stop Dose Admin Enoxaparin Sodium 40 mg 05/04/23 18:00 05/04/23 21:51 Enoxaparin Sodium 40 Mg/0.4 Ml Syringe SUBCUT 40 mg Q24H FE Administration Discontinued Medications Generic Name Dose Route Start Last Admin Trade Name Freq PRN Reason Stop Dose Admin Acetaminophen 975 mg 05/04/23 13:24 05/04/23 13:54 Acetaminophen 325 Mg Tablet PO 05/04/23 13:25 975 mg ONCE ONE Administration Sodium Chloride 1,000 mls @ 999 mls/hr 05/04/23 13:30 05/04/23 15:00 Ns IV 05/04/23 14:30 Infused .Q1H1M FE Infusion Ceftriaxone Sodium 1 gm/ 50 mls @ 100 mls/hr 05/04/23 14:03 05/04/23 15:10 Sodium Chloride IV 05/04/23 14:32 Infused ONCE ONE Infusion Ibuprofen 400 mg 05/04/23 16:25 05/04/23 18:01 Ibuprofen 400 Mg Tablet PO 05/04/23 16:26 400 mg ONCE ONE Administration Oseltamivir Phosphate 75 mg 05/04/23 15:32 05/04/23 18:01 Oseltamivir Phosphate 75 Mg Capsule PO 05/04/23 15:33 75 mg ONCE ONE Administration Medical Decision Making Medical Decision Making MDM Narrative: The patient is a 68-year-old woman with a history of some mild cognitive impairment and who is nonambulatory at baseline. She lives at a correction and is normally able to get around in a wheelchair and make transfers on her own. Today she seemed essentially unresponsive. Here she was found to have a rectal temperature of 102.8 degrees. Her workup indicates a urinary tract infection and she is also flu positive. Her lactate was normal. She was given 1 g of IV ceftriaxone. She was started on oseltamivir. She continued to be somewhat tachycardic and quite weak and somewhat confused. She will be hospitalized for further evaluation. Lab Data 05/04/23 14:18 05/04/23 14:18 Labs: Lab Results 05/04/23 05/04/23 05/04/23 Range/Units 14:18 14:30 16:16 WBC 12.8 H (4.8-10.8) X10*3/uL RBC 3.91 L (4.20-5.50) X10*6/uL Hgb 13.0 (12.0-16.0) g/dl Hct 38.7 (37.0-47.0) % MCV 99.0 H (80.0-98.0) fL MCH 33.2 H (27.0-33.0) pg MCHC 33.6 (31.0-35.0) g/dl RDW 12.5 (11.0-16.0) % Plt Count 266 (160-400) X10*3/uL MPV 8.8 L (9.4-12.3) fL Immature Gran % (Auto) 0.4 (0.0-0.4) % Neut % (Auto) 89.5 H (45-73) % Lymph % (Auto) 5.1 L (20-40) % [place] % (Auto) 4.6 (2-11) % Eos % (Auto) 0.1 (0-4) % Baso % (Auto) 0.3 (0-2) % Lymph # (Auto) 0.7 L (1.2-4.9) X10*3/uL [place] # (Auto) 0.6 (0.1-1.2) X10*3/uL Eos # (Auto) 0.0 (0.0-0.4) X10*3/uL Baso # (Auto) 0.0 (0.0-0.2) X10*3/uL Abs Immat Gran (auto) 0.05 H (0.00-0.03) X10*3/uL Absolute Neuts (auto) 11.4 H (2.0-8.3) x10*3/uL Absolute Nucleated RBC 0.000 (0.0-0.012) X10*3/uL Nucleated RBC % (auto) 0.0 (0.0-0.2) /100WBC Hold Blue Top SEE NOTE Sodium 141 (135-145) mmol/L Potassium 3.8 (3.3-5.1) mmol/L Chloride 105 (96-108) mmol/L Carbon Dioxide 26 (22-29) mmol/L Anion Gap 14 (12-20) BUN 13 (9-16) mg/dL Creatinine 0.89 (0.5-1.4) mg/dL Estim Creat Clear Calc 53.6 Estimated GFR > 60 Random Glucose 103 (60-115) mg/dL Lactic Acid 1.0 (0.5-2.0) mmol/L Calcium 8.9 (8.4-10.2) mg/dL Magnesium 2.1 (1.6-2.6) mg/dL Total Bilirubin 0.4 (0.0-1.0) mg/dL Direct Bilirubin 0.2 (0.0-0.5) mg/dL AST 19 (5-31) U/L ALT 7 (0-31) U/L Alkaline Phosphatase 77 (39-117) U/L C-Reactive Protein 2.26 H (< or = 0.50) mg/dL B-Natriuretic Peptide 85 (<100) pg/mL Total Protein 8.1 H (6.5-8.0) g/dL Albumin 4.1 (3.5-5.0) g/dL Hold Yellow Top See Note Urine Color Yellow Urine Appearance Clear Urine pH 8.0 (5.0-9.0) Ur Specific [place] 1.015 (1.005-1.025) Urine Protein 30 (1+) H (Neg-Trace) mg/dL Urine Glucose (UA) Negative (Negative) mg/dL Urine Ketones 15 (Negative) mg/dL Urine Blood Moderate (2+) H (Negative) Urine Nitrite Positive H (Negative) Ur Leukocyte Esterase Moderate (2+) H (Negative) Urine RBC 11-20 H (0-2) /HPF Urine WBC >50 H (0-5) /HPF Ur Squamous Epith Cells 0-2 (0-2) /HPF Urine Bacteria 4+ (None Seen) Hyaline Casts 0-2 (0-2) /LPF Ethyl Alcohol < 10 mg/dL Influenza Type A (PCR) POSITIVE A (Negative) Influenza Type B (PCR) NEGATIVE (Negative) RSV RNA Qual (PCR) NEGATIVE (Negative) SARS-CoV-2 RNA (RT-PCR) NEGATIVE (Negative) Independent Interpretation I performed an independent interpretation of an: EKG Interpretation: EKG at 13:43 shows sinus tachycardia at 114 beats per minute. No definite ischemic changes Discharge Plan Discharge Clinical Impression: Urinary tract infection, Influenza A, Altered mental status, Tachycardia Patient Disposition: Admitted As Inpatient Interventions: Admission Worksheet (ED) Last Done: 05/04/23 19:19 Discharge Date/Time: 05/04/23 20:56
[2023-05-04 13:30] VITALS: TEMP 39.3
[2023-05-04] MEDS: Acetaminophen 325 MG TABLET 975 MG PO (13:54)
[2023-05-04] MEDS: 0.9 % Sodium Chloride 1,000 ML 999 ML IV (13:54)
[2023-05-04 14:29] LABS: MANUAL DIFF FLAG NO
[2023-05-04 14:31] LABS: Basophils Percent Auto 0.3 % (0-2); Eosinophils Percent Auto 0.1 % (0-4); Hematocrit 38.7 % (37.0-47.0); Imm Gran Abs Auto 0.05 X10*3/uL (0.00-0.03); Imm Gran Pct Auto 0.4 % (0.0-0.4); Lymphocytes Absolute Auto 0.7 X10*3/uL (1.2-4.9); Lymphocytes Percent Auto 5.1 % (20-40); Mean Corpuscular HGB Conc 33.6 g/dl (31.0-35.0); Mean Corpuscular Hemoglobin 33.2 pg (27.0-33.0); Mean Platelet Volume 8.8 fL (9.4-12.3); Monocytes Absolute Auto 0.6 X10*3/uL (0.1-1.2); Monocytes Percent Auto 4.6 % (2-11); Neutrophils Absolute Auto 11.4 x10*3/uL (2.0-8.3); Neutrophils Percent Auto 89.5 % (45-73); Platelet Count 266 X10*3/uL (160-400); Red Blood Count 3.91 X10*6/uL (4.20-5.50); Red Cell Distribution Width 12.5 % (11.0-16.0); White Blood Count 12.8 X10*3/uL (4.8-10.8)
[2023-05-04] MEDS: cefTRIAXone sodium 1 GM in 0.9 % Sodium Chloride 50 ML IV (14:43)
[2023-05-04 14:52] LABS: Alanine Aminotransferase 7 U/L (0-31); Albumin Level 4.1 g/dL (3.5-5.0); Alkaline Phosphatase 77 U/L (39-117); Anion Gap 14 (12-20); Aspartate Amino Transferase 19 U/L (5-31); Bilirubin Direct 0.2 mg/dL (0.0-0.5); Bilirubin Total 0.4 mg/dL (0.0-1.0); Blood Urea Nitrogen 13 mg/dL (9-16); C Reactive Protein 2.26 mg/dL (< or = 0.50); Calcium 8.9 mg/dL (8.4-10.2); Carbon Dioxide 26 mmol/L (22-29); Chloride 105 mmol/L (96-108); Creatinine Clr Calc Pharmacy 53.6; Estimated Glomerular Filt Rate > 60; Ethanol < 10 mg/dL; Glucose Random 103 mg/dL (60-115); Magnesium 2.1 mg/dL (1.6-2.6); Potassium 3.8 mmol/L (3.3-5.1); Sodium 141 mmol/L (135-145); Total Protein 8.1 g/dL (6.5-8.0)
[2023-05-04 15:20] VITALS: BP 139/70; PULSE 111; RESP 18; TEMP 38.9; O2SAT 94
[2023-05-04 15:22] LABS: Influenza A PCR POSITIVE (Negative); Influenza B PCR NEGATIVE (Negative); Resp Syncy Virus RNA Qual PCR NEGATIVE (Negative); SARS COV2 PCR INHOUSE NEGATIVE (Negative)
[2023-05-04 16:22] LABS: Appearance Urine Clear; Color Urine Yellow; Glucose Urine UA Negative (Negative); Leukocyte Esterase Urine Moderate (2+) (Negative); Nitrite Urine Positive (Negative); Specific Gravity - Urine 1.015 (1.005-1.025); UMIC TRIGGER UACC YES; Urine Blood Moderate (2+) (Negative); Urine Ketones 15 mg/dL (Negative); Urine Protein 30 (1+) mg/dL (Neg-Trace)
[2023-05-04 16:27] LABS: Bacteria Urine 4+ (None Seen); Hyaline Casts Urine 0-2 /LPF (0-2); Squamous Epithelial Cell Urine 0-2 /HPF (0-2); UACC Culture Trigger YES; WBC Urine >50 /HPF (0-5)
[2023-05-04 17:04] VITALS: BP 150/72; PULSE 108; RESP 19; TEMP 37.2; O2SAT 96
--- NOTE | 2023-05-04 17:55 | PM.IMHP ---
History of Present Illness Date of Service: 05/04/23 Attending physician on admission: [facility] Chief Complaint: ams 68-year-old female with history of multiple sclerosis wheelchair-bound at baseline, iron deficiency anemia, vitamin B12 deficiency, and GERD presented to the ED via EMS from [facility] where she resides due to altered mental status and weakness noted by facility staff. The patient is awake but is a poor historian. She know she is in the hospital but is unable to tell me why she is here except that she does not feel well. She denies any pain. On arrival, the patient is found to be febrile to 102.8 rectally and tachycardic to 121. No hypoxia or hypotension. There is a leukocytosis of 12.8. Renal function electrolyte levels normal. CRP 2.26. Urinalysis significant for 2+ leukocytes, positive nitrites, 2+ blood, positive urinary sediment, 4+ bacteria. She is also positive for influenza a but negative for RSV and COVID-19. Chest x-ray unremarkable. EKG shows sinus tachycardia, rate 114, no acute ischemic changes. In the ED, given 1 L IV NS, Tylenol, ibuprofen, Tamiflu, ceftriaxone. Review of Systems Review of Systems: Yes Unobtainable due to mental status PMFSH Social History Household Members: Other Housing: Assisted Living Facility Unable to assess alcohol history related to: Unable to respond Alcohol intake: former Patient Tobacco Use Status: Never used Tobacco Smoked in Last 30 Days: No Use of substances other than those prescribed or required for medical reasons: No Currently Displaying Signs/Symptoms of Drug Intoxication Withdrawal: No Have you been hit, kicked, punched, or otherwise hurt by someone within the past year? If so, by whom?: No Do you feel safe in your current relationship?: No Current Relationship Is there a partner from a previous relationship who is making you feel unsafe now?: No Are you made to feel afraid or neglected: No Advance Directives: Yes Advance Directives on File: Yes Advance Directives Date on File: 09/12/22 Do you have thoughts of harming others: None Recently lost weight without trying: No Nutrition Risks: No Nutritional Risk Patient : No : No Poor oral hygiene: No service: No Meds Allergies Allergy/AdvReac Type Severity Reaction Status Date / Time Sulfa (Sulfonamide Allergy Unknown Verified 09/05/22 12:30 Antibiotics) Active Medications: Current Medications Acetaminophen (Acetaminophen 325 Mg Tablet) 650 mg PO Q6H PRN PRN Reason: Pain, Mild (Pain Scale 1-3) Enoxaparin Sodium (Enoxaparin Sodium 40 Mg/0.4 Ml Syringe) 40 mg SUBCUT Q24H FE Ceftriaxone Sodium 1 gm/ (Sodium Chloride) 50 mls @ 100 mls/hr IV Q24H EF Ondansetron HCl (Ondansetron Hcl 4 Mg/2 Ml Vial) 4 mg IVPUSH Q8H PRN PRN Reason: Nausea and Vomiting Oseltamivir Phosphate (Oseltamivir Phosphate 30 Mg Capsule) 30 mg PO Q12H FE Stop: 05/09/23 09:01 Senna (Sennosides 8.6 Mg Tablet) 17.2 mg PO BEDTIME PRN PRN Reason: Constipation Home Medications Medication Instructions Recorded Confirmed Last Taken Type acetaminophen 325 mg tablet 975 mg PO TID 09/05/22 05/04/23 Unknown History acetaminophen 650 mg rectal 650 mg HI Q4H PRN Fever Or Pain 09/05/22 05/04/23 Unknown History suppository bisacodyl 10 mg rectal suppository 10 mg HI DAILY PRN Constipation 09/05/22 05/04/23 Unknown History cyanocobalamin (vitamin B-12) 1,000 mcg PO DAILY 09/05/22 05/04/23 Unknown History 1,000 mcg tablet ferrous sulfate 325 mg (65 mg 325 mg PO DAILY 09/05/22 05/04/23 Unknown History iron) tablet,delayed release lidocaine 4 % topical patch 1 patch topical DAILY PRN Pain 09/05/22 05/04/23 Unknown History magnesium hydroxide 400 mg/5 mL 30 ml PO DAILY PRN Constipation 09/05/22 05/04/23 Unknown History oral suspension (Milk of Magnesia) meclizine 12.5 mg tablet 12.5 mg PO TID PRN Dizziness 09/05/22 05/04/23 Unknown History naloxone 4 mg/actuation nasal 4 mg intranasal Q3M PRN Opioid 09/05/22 05/04/23 Unknown History spray (Narcan) Overdose sodium phosphates 19 gram-7 118 ml HI DAILY PRN Constipation 09/05/22 05/04/23 Unknown History gram/118 mL enema (Fleet Enema) ascorbic acid (vitamin C) 500 mg 500 mg PO Q2D 05/04/23 05/04/23 Unknown History tablet diclofenac sodium 1 % topical gel 4 g topical DAILY 05/04/23 05/04/23 Unknown History sumatriptan succinate 50 mg tablet 50 mg PO Q24H PRN Headache 05/04/23 05/04/23 Unknown History Physical Exam Vital Signs and Narrative: Vital Signs: Last Vital Signs Temp 98.9 F 05/04/23 17:04 Pulse 108 H 05/04/23 17:04 Resp 19 05/04/23 17:04 BP 150/72 H 05/04/23 17:04 Pulse Ox 96 05/04/23 17:04 O2 Del Method Room Air 05/04/23 17:04 BMI result Body Mass Index 21.6 Constitutional - Awake and Alert, No apparent distress Eyes - PERRLA, EOMI Cardiovascular - S1S2, RRR, No edema Respiratory - Normal lung expansion, Normal respiratory effort, No respiratory distress, CTA bilaterally Gastrointestinal - NT / ND; +BS; No rebound or guarding Extremities - no calf tenderness bilaterally, no swelling Skin - Warm/Dry Neurological - Alert & oriented x3 Psychological - Appropriate affect Results Labs 05/05/23 06:02 05/05/23 06:02 Labs: Laboratory Results - last 24 hr 05/04/23 05/04/23 05/04/23 14:18 14:30 16:16 MCV 99.0 H MCH 33.2 H MCHC 33.6 RDW 12.5 Plt Count 266 MPV 8.8 L Immature Gran % (Auto) 0.4 Neut % (Auto) 89.5 H Lymph % (Auto) 5.1 L [place] % (Auto) 4.6 Eos % (Auto) 0.1 Baso % (Auto) 0.3 Lymph # (Auto) 0.7 L [place] # (Auto) 0.6 Eos # (Auto) 0.0 Baso # (Auto) 0.0 Abs Immat Gran (auto) 0.05 H Absolute Neuts (auto) 11.4 H Absolute Nucleated RBC 0.000 Nucleated RBC % (auto) 0.0 Hold Blue Top SEE NOTE Anion Gap 14 Estim Creat Clear Calc 53.6 Estimated GFR > 60 Random Glucose 103 Lactic Acid 1.0 Calcium 8.9 Magnesium 2.1 Total Bilirubin 0.4 Direct Bilirubin 0.2 AST 19 ALT 7 Alkaline Phosphatase 77 C-Reactive Protein 2.26 H Total Protein 8.1 H Albumin 4.1 Hold Yellow Top See Note Urine Color Yellow Urine Appearance Clear Urine pH 8.0 Ur Specific [place] 1.015 Urine Protein 30 (1+) H Urine Glucose (UA) Negative Urine Ketones 15 Urine Blood Moderate (2+) H Urine Nitrite Positive H Ur Leukocyte Esterase Moderate (2+) H Urine RBC 11-20 H Urine WBC >50 H Ur Squamous Epith Cells 0-2 Urine Bacteria 4+ Hyaline Casts 0-2 Ethyl Alcohol < 10 Influenza Type A (PCR) POSITIVE A Influenza Type B (PCR) NEGATIVE RSV RNA Qual (PCR) NEGATIVE SARS-CoV-2 RNA (RT-PCR) NEGATIVE Imaging Radiologist's Impressions: Impressions Chest X-Ray 05/04/23 13:59 IMPRESSION: Unremarkable examination. Assessment and Plan (1) Altered mental status: Status: Acute (2) Influenza A: Status: Acute (3) Urinary tract infection: Status: Acute Plan 68-year-old female with history of multiple sclerosis wheelchair-bound at baseline, iron deficiency anemia, vitamin B12 deficiency, and GERD to be admitted for influenza A, UTI, with sepsis and acute metabolic encephalopathy. # acute UTI with sepsis -leukocytosis 12.8, tachycardic, febrile to 102.8. No lactic acidosis or end-organ damage. No hypotension -IV ceftriaxone (initiated 05/03) (was administered 2 hours prior to urine collection which may skew culture results) -follow CBC, cultures # acute metabolic encephalopathy -due to above -monitor mentation. Mild cognitive impairment at baseline but typically oriented x3 with memory impairment # influenza a -renally adjusted Tamiflu -symptomatic management -no hypoxia # multiple sclerosis -wheelchair-bound at baseline # chronic iron-deficiency anemia -continue ferrous sulfate DVT prophylaxis-Lovenox Full code per MOLST form Patient requires inpatient stay at least 2 midnights for management of acute UTI with sepsis and metabolic encephalopathy requiring IV antibiotics and close monitoring of mentation as well as vital signs Quality Stroke Does the patient have a stroke diagnosis?: No VTE Prior VTE?: No VTE Risk Level:: Medical - moderate - high VTE Device Contraindication: Treatment Not Indicated VTE Drug Contraindication: N/A - Med Ordered
[2023-05-04 17:59] LABS: B Type Natriuretic Peptide 85 pg/mL (<100)
[2023-05-04] MEDS: Ibuprofen 400 MG TABLET PO (18:01)
[2023-05-04] MEDS: Oseltamivir Phosphate 75 MG CAPSULE PO (18:01)
--- NOTE | 2023-05-04 18:06 | PHA.MEDREC ---
Pharmacy Consult ? Medication Reconciliation Pharmacy has completed the medication reconciliation.
[2023-05-04 20:00] VITALS: BP 141/63; PULSE 85; RESP 16; TEMP 36.8; O2SAT 94
[2023-05-04] MEDS: Enoxaparin Sodium 40 MG/0.4 ML SYRINGE SUBCUT (21:51)
[2023-05-05 03:27] VITALS: BP 168/79; PULSE 100; RESP 18; TEMP 37.8; O2SAT 94
[2023-05-05] MEDS: Acetaminophen 325 MG TABLET 650 MG PO ×2 (03:43→08:49)
[2023-05-05 06:38] LABS: MANUAL DIFF FLAG NO
[2023-05-05 06:58] LABS: Basophils Percent Auto 0.5 % (0-2); Eosinophils Percent Auto 0.1 % (0-4); Hematocrit 38.2 % (37.0-47.0); Hemoglobin 12.8 g/dl (12.0-16.0); Imm Gran Abs Auto 0.03 X10*3/uL (0.00-0.03); Imm Gran Pct Auto 0.3 % (0.0-0.4); Lymphocytes Percent Auto 11.9 % (20-40); Mean Corpuscular HGB Conc 33.5 g/dl (31.0-35.0); Mean Corpuscular Volume 98.5 fL (80.0-98.0); Mean Platelet Volume 9.3 fL (9.4-12.3); Monocytes Absolute Auto 0.9 X10*3/uL (0.1-1.2); Monocytes Percent Auto 10.7 % (2-11); Neutrophils Absolute Auto 6.7 x10*3/uL (2.0-8.3); Neutrophils Percent Auto 76.5 % (45-73); Platelet Count 236 X10*3/uL (160-400); Red Blood Count 3.88 X10*6/uL (4.20-5.50); Red Cell Distribution Width 12.5 % (11.0-16.0); White Blood Count 8.7 X10*3/uL (4.8-10.8)
[2023-05-05 07:05] LABS: Anion Gap 14 (12-20); Blood Urea Nitrogen 12 mg/dL (9-16); Calcium 8.7 mg/dL (8.4-10.2); Carbon Dioxide 24 mmol/L (22-29); Chloride 107 mmol/L (96-108); Creatinine Clr Calc Pharmacy 59.7; Estimated Glomerular Filt Rate > 60; Glucose Random 90 mg/dL (60-115); Potassium 3.7 mmol/L (3.3-5.1); Sodium 141 mmol/L (135-145)
[2023-05-05 07:18] VITALS: BP 142/72; PULSE 99; RESP 16; TEMP 37.5; O2SAT 96
[2023-05-05] MEDS: Oseltamivir Phosphate 30 MG CAPSULE PO ×2 (08:41→21:07)
[2023-05-05 10:31] VITALS: TEMP 37
--- NOTE | 2023-05-05 12:57 | P.PNIM_ITS ---
Subjective Subjective Date of Service: 05/06/23 Interval History: f/u on influeza, resp distress in patient with MS, still SOB, coughing Physical Exam 2 Vital Signs: Vital Signs: Last Vital Signs Temp 98.6 F 05/05/23 10:31 Pulse 99 05/05/23 07:18 Resp 16 05/05/23 07:18 BP 142/72 H 05/05/23 07:18 Pulse Ox 96 05/05/23 07:18 O2 Del Method Room Air 05/05/23 07:18 BMI result Body Mass Index 21.6 General: AO X 3, no acute distress Resp: haley rhonci CVS: S1,S2,RRR GI: +BS, NT, no distention Skin: No rash Neuro: motor grossly intact Psych: appropriate affect Objective Data Active Medications Acetaminophen (Acetaminophen 325 Mg Tablet) 650 mg PO Q6H PRN PRN Reason: Pain, Mild (Pain Scale 1-3) Last Admin: 05/05/23 08:49 Dose: 650 mg Documented By: DANY Enoxaparin Sodium (Enoxaparin Sodium 40 Mg/0.4 Ml Syringe) 40 mg SUBCUT Q24H FE Last Admin: 05/04/23 21:51 Dose: 40 mg Documented By: LINDA Ceftriaxone Sodium 1 gm/ (Sodium Chloride) 50 mls @ 100 mls/hr IV Q24H FE Ondansetron HCl (Ondansetron Hcl 4 Mg/2 Ml Vial) 4 mg IVPUSH Q8H PRN PRN Reason: Nausea and Vomiting Oseltamivir Phosphate (Oseltamivir Phosphate 30 Mg Capsule) 30 mg PO Q12H FE Stop: 05/09/23 09:01 Last Admin: 05/05/23 08:41 Dose: 30 mg Documented By: DANY Senna (Sennosides 8.6 Mg Tablet) 17.2 mg PO BEDTIME PRN PRN Reason: Constipation Labs 05/05/23 06:02 05/05/23 06:02 Labs: Laboratory Results - last 24 hr 05/04/23 05/04/23 05/04/23 14:18 14:30 16:16 MCV 99.0 H MCH 33.2 H MCHC 33.6 RDW 12.5 Plt Count 266 MPV 8.8 L Immature Gran % (Auto) 0.4 Neut % (Auto) 89.5 H Lymph % (Auto) 5.1 L [place] % (Auto) 4.6 Eos % (Auto) 0.1 Baso % (Auto) 0.3 Lymph # (Auto) 0.7 L [place] # (Auto) 0.6 Eos # (Auto) 0.0 Baso # (Auto) 0.0 Abs Immat Gran (auto) 0.05 H Absolute Neuts (auto) 11.4 H Absolute Nucleated RBC 0.000 Nucleated RBC % (auto) 0.0 Hold Blue Top SEE NOTE Anion Gap 14 Estim Creat Clear Calc 53.6 Estimated GFR > 60 Random Glucose 103 Lactic Acid 1.0 Calcium 8.9 Magnesium 2.1 Total Bilirubin 0.4 Direct Bilirubin 0.2 AST 19 ALT 7 Alkaline Phosphatase 77 C-Reactive Protein 2.26 H B-Natriuretic Peptide 85 Total Protein 8.1 H Albumin 4.1 Hold Yellow Top See Note Urine Color Yellow Urine Appearance Clear Urine pH 8.0 Ur Specific [place] 1.015 Urine Protein 30 (1+) H Urine Glucose (UA) Negative Urine Ketones 15 Urine Blood Moderate (2+) H Urine Nitrite Positive H Ur Leukocyte Esterase Moderate (2+) H Urine RBC 11-20 H Urine WBC >50 H Ur Squamous Epith Cells 0-2 Urine Bacteria 4+ Hyaline Casts 0-2 Ethyl Alcohol < 10 Influenza Type A (PCR) POSITIVE A Influenza Type B (PCR) NEGATIVE RSV RNA Qual (PCR) NEGATIVE SARS-CoV-2 RNA (RT-PCR) NEGATIVE 05/05/23 06:02 MCV 98.5 H MCH 33.0 MCHC 33.5 RDW 12.5 Plt Count 236 MPV 9.3 L Immature Gran % (Auto) 0.3 Neut % (Auto) 76.5 H Lymph % (Auto) 11.9 L [place] % (Auto) 10.7 Eos % (Auto) 0.1 Baso % (Auto) 0.5 Lymph # (Auto) 1.0 L [place] # (Auto) 0.9 Eos # (Auto) 0.0 Baso # (Auto) 0.0 Abs Immat Gran (auto) 0.03 Absolute Neuts (auto) 6.7 Absolute Nucleated RBC 0.000 Nucleated RBC % (auto) 0.0 Hold Blue Top Anion Gap 14 Estim Creat Clear Calc 59.7 Estimated GFR > 60 Random Glucose 90 Lactic Acid Calcium 8.7 Magnesium Total Bilirubin Direct Bilirubin AST ALT Alkaline Phosphatase C-Reactive Protein B-Natriuretic Peptide Total Protein Albumin Hold Yellow Top Urine Color Urine Appearance Urine pH Ur Specific [place] Urine Protein Urine Glucose (UA) Urine Ketones Urine Blood Urine Nitrite Ur Leukocyte Esterase Urine RBC Urine WBC Ur Squamous Epith Cells Urine Bacteria Hyaline Casts Ethyl Alcohol Influenza Type A (PCR) Influenza Type B (PCR) RSV RNA Qual (PCR) SARS-CoV-2 RNA (RT-PCR) Assessment and Plan (1) Influenza A: Status: Acute (2) Urinary tract infection: Status: Acute (3) Altered mental status: Status: Acute Plan 68-year-old female with history of multiple sclerosis wheelchair-bound at baseline, iron deficiency anemia, vitamin B12 deficiency, and GERD to be admitted for influenza A, UTI, with sepsis and acute metabolic encephalopathy. # acute UTI with sepsis, culture growing Proteus, sensitivity pending -leukocytosis 12.8, tachycardic, febrile to 102.8. No lactic acidosis or end- organ damage. No hypotension -IV ceftriaxone (initiated 05/03) (was administered 2 hours prior to urine collection which may skew culture results) -follow CBC, cultures # acute metabolic encephalopathy -due to above -monitor mentation. Mild cognitive impairment at baseline but typically oriented x3 with memory impairment # influenza a -renally adjusted Tamiflu -symptomatic management -no hypoxia # multiple sclerosis -wheelchair-bound at baseline # chronic iron-deficiency anemia -continue ferrous sulfate DVT prophylaxis-Lovenox Full code per MOLST form Patient requires inpatient stay at least 2 midnights for management of acute UTI with sepsis and metabolic encephalopathy requiring IV antibiotics and close monitoring of mentation as well as vital signs Quality Stroke Does the patient have a stroke diagnosis?: No VTE Prior VTE?: No VTE Risk Level:: Medical - moderate - high VTE Device Contraindication: Treatment Not Indicated VTE Drug Contraindication: N/A - Med Ordered
[2023-05-05] MEDS: cefTRIAXone sodium 1 GM in 0.9 % Sodium Chloride 50 ML IV (13:28)
[2023-05-05] MEDS: Ascorbic Acid 500 MG TABLET PO (14:45)
[2023-05-05] MEDS: Ferrous Sulfate 324 MG TABLET.DR PO (14:45)
[2023-05-05] MEDS: Cyanocobalamin (Vitamin B-12) 1,000 MCG TABLET 1000 MCG PO (14:45)
[2023-05-05 15:39] VITALS: BP 143/70; PULSE 96; RESP 20; TEMP 37.3; O2SAT 99
--- NOTE | 2023-05-05 15:39 | MHC.CM.PN ---
CM CONTACTED PTS HCP/BROTHER, PEDRO LUIS MARTINEZ [phone] HE CONFIRMS PT IS LTC AT [facility] PT IS WHEEL CHAIR BOUND AT BASELINE HCP AND MOLST ON FILE PCP: ORLY URBANO IMM DELIVERED PEDRO LUIS REQUESTS COPY BE MAILED TO HIM AT [address] [place] [id number] DCP: RETURN TO [facility] VIA BLS
[2023-05-05] MEDS: Acetaminophen 325 MG TABLET 975 MG PO ×2 (16:34→21:07)
[2023-05-05] MEDS: Enoxaparin Sodium 40 MG/0.4 ML SYRINGE SUBCUT (17:51)
[2023-05-05 19:44] VITALS: BP 129/63; PULSE 105; RESP 20; TEMP 36.5; O2SAT 94
[2023-05-06 03:47] VITALS: BP 137/71; PULSE 89; RESP 18; TEMP 36.3; O2SAT 96
[2023-05-06] MEDS: guaiFENesin 100 MG/5 ML LIQUID PO (05:26)
[2023-05-06] MEDS: Ferrous Sulfate 324 MG TABLET.DR PO (07:32)
[2023-05-06] MEDS: Acetaminophen 325 MG TABLET 975 MG PO ×2 (07:33→20:00)
[2023-05-06] MEDS: Cyanocobalamin (Vitamin B-12) 1,000 MCG TABLET 1000 MCG PO (07:34)
[2023-05-06] MEDS: Oseltamivir Phosphate 30 MG CAPSULE PO ×2 (07:34→20:00)
[2023-05-06 07:56] VITALS: BP 173/85; PULSE 86; RESP 16; TEMP 37; O2SAT 95
[2023-05-06 10:58] VITALS: BP 136/62
[2023-05-06] MEDS: cefTRIAXone sodium 1 GM in 0.9 % Sodium Chloride 50 ML IV (14:13)
[2023-05-06 15:55] VITALS: BP 143/84; PULSE 93; RESP 16; TEMP 36.9; O2SAT 95
[2023-05-06] MEDS: Enoxaparin Sodium 40 MG/0.4 ML SYRINGE SUBCUT (17:07)
[2023-05-06 19:47] VITALS: BP 141/65; PULSE 107; RESP 16; TEMP 36.9; O2SAT 94
[2023-05-07 04:00] VITALS: BP 138/69; PULSE 90; RESP 16; TEMP 36.1; O2SAT 97
[2023-05-07] MEDS: Acetaminophen 325 MG TABLET 975 MG PO (07:21)
[2023-05-07] MEDS: Cyanocobalamin (Vitamin B-12) 1,000 MCG TABLET 1000 MCG PO (07:21)
[2023-05-07] MEDS: Ferrous Sulfate 324 MG TABLET.DR PO (07:21)
[2023-05-07] MEDS: Oseltamivir Phosphate 30 MG CAPSULE PO (07:21)
[2023-05-07 07:40] VITALS: BP 159/80; PULSE 85; RESP 18; TEMP 36.8; O2SAT 95
--- NOTE | 2023-05-07 09:37 | P.DS_ITS ---
DS: Providers Provider Date of Service: 05/23/23 Date of admission: 05/04/23 17:50 Primary care physician: Arjun Pat MD Consults: 05/04/23 21:26 Consult to Wound Care Routine Reason for consultation: butt redness old healed ulcers Has provider been notified: No DS: Diagnosis Discharge Diagnosis (1) Influenza A: Status: Acute (2) Urinary tract infection: Status: Acute (3) Altered mental status: Status: Acute DS: Summary Hospital Course Hospital Course: admission hpi Chief Complaint: ams 68-year-old female with history of multiple sclerosis wheelchair-bound at baseline, iron deficiency anemia, vitamin B12 deficiency, and GERD presented to the ED via EMS from [facility] where she resides due to altered mental status and weakness noted by facility staff. The patient is awake but is a poor historian. She know she is in the hospital but is unable to tell me why she is here except that she does not feel well. She denies any pain. On arrival, the patient is found to be febrile to 102.8 rectally and tachycardic to 121. No hypoxia or hypotension. There is a leukocytosis of 12.8. Renal function electrolyte levels normal. CRP 2.26. Urinalysis significant for 2+ leukocytes, positive nitrites, 2+ blood, positive urinary sediment, 4+ bacteria. She is also positive for influenza a but negative for RSV and COVID-19. Chest x-ray unremarkable. EKG shows sinus tachycardia, rate 114, no acute ischemic changes. In the ED, given 1 L IV NS, Tylenol, ibuprofen, Tamiflu, ceftriaxone Hospital course: This patient with MS presented with change in mental status and work up revealed UTI, and influenza without hypoxia. UTI, culture grew Proteus M. sensitive to ceftriaxone. She has received 3 days of IV ceftriaxone and will transition to oral Ceftin for total of 7 days. She is afebrile, WBC initially 12, now 8.7. confusion due to metabolic encephalopath has resolved and she's at her baseline mental status. Influeza has been treated with Tamiflu and will treat for total of 5 days ending 05/07. Her blood pressure has been on high side and is started on Norvasc 2.5 mg. She feels well and will return to SNF Time Attestation Discharge Coordination Time (in mins): 35 Quality: Safe Use of Opioids Does Pt have an Active Cancer Diagnosis on the Problem List?: No Quality: Stroke Does the patient have a stroke diagnosis?: No Physical Exam Vital Signs: Vital Signs: Last Vital Signs Temp 98.2 F 05/07/23 07:40 Pulse 85 05/07/23 07:40 Resp 18 05/07/23 07:40 BP 159/80 H 05/07/23 07:40 Pulse Ox 95 05/07/23 07:40 O2 Del Method Room Air 05/07/23 07:40 BMI result Body Mass Index 21.6 General: AO X 3, no acute distress Resp: CTA bilateral CVS: S1,S2,RRR GI: +BS, NT, no distention Skin: No rash Neuro: motor grossly intact Psych: appropriate affect DS: Data Data Completed and Pending Labs on day of discharge: Preliminary micro results at discharge 05/04/23 14:38 Blood Culture - Preliminary Blood - Venous No growth after 48 hours. 05/04/23 14:18 Blood Culture - Preliminary Blood - Venous No growth after 48 hours. Discharge Plan Discharge Anticipated Discharge Date/Time: 05/07/23 09:36 Patient Disposition: Xfer LTC Discharge Diagnosis: UTI, encephalopathy, Influenza [facility] - 1 Week (TRANSFER FOR RESUMPTION OF [facility]) Arjun Pat MD [Primary Care Provider] - 1 Week Discharge Medications: New oseltamivir 30 mg Capsule 30 mg PO Q12H Qty: 3 0RF cefuroxime axetil 250 mg tablet 250 mg PO BID 4 Days Qty: 8 0RF Rx Instructions: next dose 05/08/23 morning amlodipine 2.5 mg Tablet 2.5 mg PO DAILY Qty: 30 0RF Protocol: Hold for SBP< HOLD for SBP < : 90 Continued acetaminophen 325 mg Tablet 975 mg PO TID acetaminophen 650 mg Suppository 650 mg NJ Q4H PRN (Reason: Fever Or Pain) lidocaine 4 % Adhesive Patch,Medicated 1 patch TOPICAL DAILY PRN (Reason: Pain) Rx Instructions: apply to left hip cyanocobalamin (vitamin B-12) 1,000 mcg Tablet 1,000 mcg PO DAILY meclizine 12.5 mg Tablet 12.5 mg PO TID PRN (Reason: Dizziness) magnesium hydroxide [Milk of Magnesia] 400 mg/5 mL Suspension 30 ml PO DAILY PRN (Reason: Constipation) bisacodyl 10 mg Suppository 10 mg NJ DAILY PRN (Reason: Constipation) Fleet Enema 19-7 gram/118 mL Enema 118 ml NJ DAILY PRN (Reason: Constipation) ferrous sulfate 325 mg (65 mg iron) Tablet,Delayed Release (Dr/Ec) 325 mg PO DAILY naloxone [Narcan] 4 mg/actuation Freeman,Non-Aerosol 4 mg INTRANASAL Q3M PRN (Reason: Opioid Overdose) Rx Instructions: spray 1 dose into ONE nostril; alternate nostrils w each dose until help arrives diclofenac sodium 1 % Gel 4 g TOPICAL DAILY Rx Instructions: apply to single knee, ankle, foot; for foot includes sole/toes/top of foot sumatriptan succinate 50 mg Tablet 50 mg PO Q24H PRN (Reason: Headache) Rx Instructions: do not exceed 4 doses per 24 hrs ascorbic acid (vitamin C) 500 mg Tablet 500 mg PO Q2D Discharge Orders: Discharge Order (Routine); Ordered 05/07/23 Ordered By: Steve Garcia Diet: Advance to usual diet Activity on Discharge: As tolerated Stand Alone Forms: Patient Portal Discharge page Print Language: Greek Care Plan Goals: Full recovery from Influenza and UTI Health Concerns: Influenza, UTI, mtabolic encephalopathy,, much plus sclerosis. Plan of Treatment: Take Ceftin for UTI Take Tamiflu for Influenza (flu) Follow up with your Doctor in a week, call for appointment Assessment: See above Patient Instructions: Influenza (DC) Discharge Date/Time: 05/07/23 12:51
--- NOTE | 2023-05-07 10:15 | MHC.CM.PN ---
DP: PT HAS BEEN MEDICALLY CLEARED FOR DC BACK TO [facility] TO RESUME LTC. RN AWARE. HCP PEDRO LUIS UPDATED. CENTER UPDATED ON RETURN VIA [facility]. BLS TRANSPORT BOOKED VIA [facility] FOR 12:30 PM
[2023-05-07] MEDS: amLODIPine Besylate 2.5 MG TABLET PO (10:35)
== END 2023-05-07 12:51 | DRG 193 ==
LOC: HO.ED 17:38 → HO.EDOVER 17:58 → HO.S3 18:18
PROVIDERS: Admitting Provider Physician Assistant; Emergency Provider Emergency Medicine; PCP Family Medicine; Visit Provider Internal Medicine
DX: J10.1 Influenza due to other identified influenza virus with other respiratory manifestations (principal); G93.41 Metabolic encephalopathy; N39.0 Urinary tract infection, site not specified; D50.9 Iron deficiency anemia, unspecified; Z87.440 Personal history of urinary (tract) infections; G35 Multiple sclerosis; Z99.3 Dependence on wheelchair; B96.4 Proteus (mirabilis) (morganii) as the cause of diseases classified elsewhere; Z79.899 Other long term (current) drug therapy
CPT/HCPCS: 0241U; 36415; 71045; 80048; 80076; 80307; 81001; 83605; 83735; 83880; 85025; 86140; 87040; 87086; 87088; 87186; 93005; 99285; J0696; J1650

== ENCOUNTER → 2023-05-04 13:16 | Outpatient (BNV) | payer MEDICARE, MEDICAID, SELFPAY | PROVIDERS: Admitting Provider Physician Assistant; Emergency Provider Emergency Medicine; PCP Family Medicine; Visit Provider Internal Medicine Cardiovascular Disease | DX: R41.82 Altered mental status, unspecified (principal) | CPT/HCPCS: 93010 ==

== ENCOUNTER → 2023-05-04 17:50 | Outpatient (BNV) | payer MEDICARE, MEDICAID, SELFPAY | PROVIDERS: Admitting Provider Physician Assistant; Emergency Provider Emergency Medicine; PCP Family Medicine; Visit Provider Physician Assistant | DX: J10.1 Influenza due to other identified influenza virus with other respiratory manifestations (principal); N39.0 Urinary tract infection, site not specified; R41.82 Altered mental status, unspecified | CPT/HCPCS: 99223; 99232; 99239 ==

== ENCOUNTER 2023-09-13 08:09 | Outpatient (AMB) | payer MEDICARE, MEDICAID, SELFPAY ==
--- NOTE | 2023-09-13 08:18 | MHC.OFFVIS ---
Vital Signs 09/13/23 08:20 Respiration 16 Pulse 113 H Pulse Source Pulse Oximeter Pulse Oximetry (%) 97 Oxygen Delivery Method Room Air Intake Visit Reasons: ENP: MS - Confirmed Intake Note: Pt presents to the office for new pt consultation for MS. 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 She is currently at [facility] in [place] .she is a poor historian - she talks about her travel from [place] to [place].she had a fall when she landed in [place] - fractured her left hip. she is not on any medications for MS.she reports cognitive issues. [facility] Medical History (Updated 09/13/23 @ 15:30 by Jessica La MD) Cognitive disorder Multiple sclerosis Surgical History (Updated 09/13/23 @ 08:27 by Dayna Kim CMA) H/O myomectomy Social History Household Members: Other Housing: Assisted Living Facility Unable to assess alcohol history related to: Unable to respond Alcohol intake: former Patient Tobacco Use Status: Never used Tobacco Advance Directives Date on File: 09/12/22 service: No Physical Exam Vital Signs: Last Vital Signs Pulse 113 H 09/13/23 08:20 Resp 16 09/13/23 08:20 Pulse Ox 97 09/13/23 08:20 Oxygen Delivery Method Room Air 09/13/23 08:20 Const General: cooperative and comfortable Nutritional Appearance: average body habitus Orientation/consciousness: oriented to person and oriented to place Neuro Other: In a wheel chair , she was able to stand but could not walk General: oriented to person, oriented to place, moves all extremities, no focal motor deficits and Unable to assess gait Cranial nerves: Yes Bilaterally intact EOM present, Yes Nystagmus not present, Yes Normal facial strength present, Yes Midline tongue present and Yes Symmetric palate elevation present Cognition (Neuro): abnormal cognition Gait exam (Neuro): Unable to assess gait Motor exam (neuro): 5/5 motor strength present throughout and Normal motor muscle tone present throughout Deep tendon reflexes (DTR's): Right triceps reflex intensity grade: 1+, Left triceps reflex intensity grade: 1+, Rt Biceps (C5, C6): 1+, Left biceps reflex intensity grade: 1+, Right brachioradialis reflex intensity grade: 1+, Left brachioradialis reflex intensity grade: 1+, Right patellar reflex intensity grade: 1+ and Left patellar reflex intensity grade: 1+ Coordination: [id number] test normal Assessment & Plan Assessment & Plan (1) Multiple sclerosis: Comment: in remission Code(s): G35 - Multiple sclerosis Category: Medical (2) Cognitive disorder: Code(s): F09 - Unspecified mental disorder due to known physiological condition Category: Medical Plan A detailed history could not be obtained from the patient Her MS is stable now - will monitor Start PT for gait and balance training Needs neuropsych evaluation Reports from [place] Coding Level of Care Code New Pt Level 4 (53076) Diagnoses Multiple sclerosis G35 Cognitive disorder F09
[2023-09-13 08:20] VITALS: PULSE 113; RESP 16; O2SAT 97
== END 2023-09-13 09:20 | disposition home or self-care (01) ==
PROVIDERS: PCP Family Medicine; Visit Provider Psychiatry & Neurology Neurology
DX: G35 Multiple sclerosis (principal); R41.89 Other symptoms and signs involving cognitive functions and awareness
CPT/HCPCS: 99204

== ENCOUNTER → 2023-09-13 08:09 | Outpatient (BNVA) | payer MEDICARE, MEDICAID, SELFPAY | PROVIDERS: PCP Family Medicine; Visit Provider Psychiatry & Neurology Neurology | DX: G35 Multiple sclerosis (principal); F09 Unspecified mental disorder due to known physiological condition | CPT/HCPCS: 99202 ==

== ENCOUNTER 2024-08-26 12:52 | Outpatient (AMB) | payer MEDICARE, MEDICAID, SELFPAY ==
--- NOTE | 2024-08-26 12:54 | MHC.OFFVIS ---
Vital Signs 08/26/24 12:59 BP 112/74 Blood Pressure Location Rt brachial Position Sitting Pulse 82 Pulse Source Pulse Oximeter Pulse Oximetry (%) 96 Intake Visit Reasons: f/u appt Intake Note: Patient following up no orders for PT or Neuropsych on file Allergies Sulfa (Sulfonamide Antibiotics) Allergy (Verified 08/26/24 12:57) Unknown HPI Comments Details: 69y/o female with Multiple Sclerosis comes for follow up.she denies nay new symptoms or concerns.No falls.she came alone and says she is good. she is able to shower, dress and feed herself with some help. History form initial visit 08/2023 she was diagnosed many 20-30 years ago when she was in [place]. She is currently at [facility] in [place] .she is a poor historian - she talks about her travel from [place] to [place].she had a fall when she landed in [place] - fractured her left hip. she is not on any medications for MS.she reports cognitive issues. [facility] Medical History Cognitive disorder Multiple sclerosis Surgical History H/O myomectomy Social History Household Members: Other Housing: Assisted Living Facility Unable to assess alcohol history related to: Unable to respond Alcohol intake: former Patient Tobacco Use Status: Never used Tobacco Advance Directives Date on File: 09/12/22 service: No Physical Exam Vital Signs: Last Vital Signs Pulse 82 08/26/24 12:59 BP 112/74 08/26/24 12:59 Pulse Ox 96 08/26/24 12:59 Const General: cooperative and comfortable Nutritional Appearance: average body habitus Orientation/consciousness: oriented to person and oriented to place Neuro Other: In a wheel chair , she was able to stand but could not walk General: oriented to person, oriented to place, moves all extremities, no focal motor deficits and Unable to assess gait Cranial nerves: Yes Bilaterally intact EOM present, Yes Nystagmus not present, Yes Normal facial strength present, Yes Midline tongue present and Yes Symmetric palate elevation present Gait exam (Neuro): Unable to assess gait Motor exam (neuro): 5/5 motor strength present throughout and Normal motor muscle tone present throughout Coordination: [id number] test normal Orientation What is the (year) (season) (date) (day) (month)?: year Where are we (state) (county) (town or city) (hospital) (floor)?: state, town or city, hospital/clinic and floor Registration Name of 3 unrelated objects clearly and slowly, then ask patient to repeat all 3 of them. (1st repeat determines score. Make sure they can repeat all three): object 1, object 2 and object 3 Attention & Calculation (CHOOSE ONE) Spell WORLD backwards (DLROW): 5 letters Recall Ask patient to repeat the 3 items from question #3.: object 1, object 2 and object 3 Language Show patient a wristwatch & ask what it is. Repeat for pencil.: watch and pencil Ask the patient to repeat the phrase 'No ifs, ands, or buts' after you.: correct Ask the patient to 'take a piece of paper with their right hand' 'fold paper in half' 'place paper on floor': take paper in right hand, fold paper in half and place paper on floor Print the sentence 'CLOSE YOUR EYES' on a piece. If patient actually closes eyes then score.: followed written direction Give patient a blank piece of paper & ask to write a sentence. Score if it contains a noun & verb.: sentence contains subject and verb Ask patient to copy figure of intersecting pentagons exactly. Score if all 10 angles & 2 intersects are included.: all 10 angles present & 2 are intersected Score Score: 25 Assessment & Plan Assessment & Plan (1) Multiple sclerosis: Comment: in remission Code(s): G35 - Multiple sclerosis Category: Medical (2) Cognitive disorder: Comment: did well on MMSE today Code(s): F09 - Unspecified mental disorder due to known physiological condition Category: Medical Plan Her MS is stable now - will monitor continue PT for gait and balance training F/u as needed Coding Level of Care Code Est Pt Level 4 (30928) Complex EM visit Add On G2211 Diagnoses Multiple sclerosis G35 Cognitive disorder F09
[2024-08-26 12:59] VITALS: BP 112/74; PULSE 82; O2SAT 96
== END 2024-08-26 13:21 | disposition home or self-care (01) ==
PROVIDERS: PCP Family Medicine; Visit Provider Psychiatry & Neurology Neurology
DX: G35 Multiple sclerosis (principal); R41.89 Other symptoms and signs involving cognitive functions and awareness
CPT/HCPCS: 99214; G2211

== ENCOUNTER → 2024-08-26 12:52 | Outpatient (BNVA) | payer MEDICARE, MEDICAID, SELFPAY | PROVIDERS: PCP Family Medicine; Visit Provider Psychiatry & Neurology Neurology | DX: G35 Multiple sclerosis (principal); F09 Unspecified mental disorder due to known physiological condition | CPT/HCPCS: 99212 ==